=== PATIENT | male | born 1960 | race Caucasian/White ===

== ENCOUNTER → 2019-01-24 06:20 | Outpatient (CLI) | payer OTHER | END | disposition home or self-care (01) | LOC: D.RAD 06:20 | DX: M19.90 Unspecified osteoarthritis, unspecified site (principal) ==

== ENCOUNTER 2019-06-20 10:36 | Outpatient (CLI) | payer OTHER ==
[~2019-06-20] VITALS: Ht 177.8 cm; Wt 125.5 kg
--- NOTE | ~2019-06-20 | HEMODYNAMI ---
PATIENT:KADEN POWERS MEDICAL RECORD: [id number] : 56 LOCATION:[facility] ADMISSION DATE: 06/20/19 Generatedon:06/20/201915:05 Patient name: KADEN POWERS Patient #: [id number] : 1960 Date of study: 06/20/2019 Page: Of Hemodynamic Procedure Report Patient Data Patient Demographics Procedure consent was obtained First Name: KADEN Gender: Male Last Name: PRIYA : 1960 Middle Initial: RAY Age: 59 year(s) Patient #: [id number] Race: Unknown SSN: [id number] Additional ID: [id number] Contact details [address]: [address] [place] [address] State: [place] City: [place] Zip code: [address] Past Medical History Allergies Allergen Reaction Date Comments Reported Other allergy 06/20/2019 shell fish Admission Admission Data Admission Date: 06/20/2019 Admission Time: 10:36 Procedure Procedure Types Cath Procedure Diagnostic Procedure LHC LHC w/Coronaries Procedure Description Procedure Date Procedure Date: 06/20/2019 Procedure Start Time: 14:41 Procedure End Time: 15:00 Procedure Staff Name Function Liam Doyle MD Performing Physician Fausto Alberot RT Monitor Argelia Bermudez RN Nurse Allegra Ayers RT Scrub Procedure Data Cath Procedure Fluoroscopy Diagnostic fluoroscopy Total fluoroscopy Time: 6.9 time: 6.9 min min Diagnostic fluoroscopy Total fluoroscopy dose: dose: 1483 mGy 1483 mGy Contrast Material Contrast Material Type Amount (ml) Isovue 300 91 Entry Location Entry Primary Successful Side Size Upsize Upsize Entry Closure Montiel ccessful Closure Location (Fr) 1 (Fr) 2 (Fr) Remarks Device Remarks Radial Right 6 Fr Mechanical artery Short Compression Estimated blood loss: 10 ml Diagnostic catheters Device Type Used For End Catheter Placement DIAGNOSTIC Min 110cm Procedure 5Fr catheter ([id number]) DIAGNOSTIC [place] 110cm 5 Procedure Fr catheter ([id number]) DIAGNOSTIC AR1 MOD 5Fr Procedure catheter ([id number]) Procedure Complications No complications Procedure Medications Medication Administration Route Dosage Oxygen NC 2 l/min Heparin Flush Bag added to field 2 bags (1000units/500ml NS) Lidocaine 2% added to field 20 0.9% NaCl I.V. 100 ml/hr Versed I.V. 1 mg Fentanyl I.V. 50 mcg Fentanyl I.V. 25 mcg Versed I.V. 0.5 mg Hemodynamics Rest Heart Rate: 84 (bpm) Pressure Samples Time Site Value (mmHg) Purpose Heart Use Rate(bpm) 14:45 LV 163/17,25 Snapshot 96 14:45 AO 141/83(105) Pullback 91 14:45 LV 161/10,23 Pullback 91 14:49 AO 139/91(113) Snapshot 89 Gradients Valve Time Site 1 Site 2 Mean SEP/DFP Peak To Heart Use (mmHg) (sec/min) Peak Rate (mmHg) (bpm) Aortic 14:45 LV AO 11 23 20 91 161/10,23 141/83(105) Calculations Valve P-P Mean Valve Index Valve Source Name Gradient Area Flow (cm2) Aortic 20 11 20 11 Snapshots Pre Cath Intra NCS Post Cath Vital Signs Time Heart Resp SPO2 etCO2 NIBP (mmHg) Rhythm Pain Sedation Rate (ipm) (%) (mmHg) Status Level (bpm) 14:26:25 84 13 96 24.8 149/84(115) NSR 0 (11) 10(A) , No pain 14:30:45 79 20 94 28.6 149/84(126) NSR 0 (11) 10(A) , No pain 14:35:03 80 19 93 28.6 137/81(105) NSR 0 (11) 10(A) , No pain 14:39:21 90 15 92 30.8 144/81(122) NSR 0 (11) 10(A) , No pain 14:44:51 96 15 90 10.5 129/62(93) NSR 0 (11) 9(A) , No pain 14:49:07 87 15 90 12 137/77(83) NSR 0 (11) 9(A) , No pain 14:53:26 93 16 92 0 139/78(117) NSR 0 (11) 9(A) , No pain 14:57:44 93 12 92 24.8 130/76(99) NSR 0 (11) 9(A) , No pain Medications Time Medication Route Dose Verified Delivered Reason Notes Eff ectiveness by by 14:25:27 Oxygen NC 2 Liam Argelia for low 02 l/min Vivek Sparksor sats RN 14:25:35 Heparin Flush added 2 Argelia Argelia used for Bag to bags Lara Lara procedure (1000units/500ml field RN RN NS) 14:25:43 Lidocaine 2% added 20ml Argelia Argelia for local to vial Lara Lara anesthetic field RN RN 14:25:54 0.9% NaCl I.V. 100 Argelia Argelia used for ml/hr Lara Lara counseling program leader RN 14:41:15 Fentanyl I.V. 50 Liam Argelia for mcg Vivek Sparksor sedation RN 14:41:59 Versed I.V. 1 mg Liam Argelia for Vivek Bermudez sedation RN 14:46:33 Fentanyl I.V. 25 Liam Argelia for mcg Vivek Herrmannelor sedation RN 14:46:42 Versed I.V. 0.5 Liam Argelia for mg Vivek CRAWFORD Lara sedation abalone fisherman Log Time Note 14:00:42 Argelia Bermudez RN sent for patient. Start room use. 14:15:39 Procedure Status Elective Heart Cath (OP). 14:15:44 Time tracking: Regular hours (M-F 7:00 - 5:00) 14:15:49 Plan of Care:Hemodynamics will remain stable., Cardiac rhythm will remain stable., Comfort level will be maintained., Respiratory function will remain adequate., Patient/ family verbilizes understanding of procedure., Procedure tolerated without complication., Recovers from procedure without complications.. 14:15:54 Patient received from Pre/Post Procedure Room to [facility] 2 Alert and oriented. Tansferred to table in Supine position. 14:15:56 Signed procedure consent form obtained from patient. 14:15:58 Warm blankets applied, and neelam hugger turned on for patient comfort. 14:15:59 Correct patient and procedure confirmed by team. 14:16:18 H&P Date Dictated: 06/14/2019 Within 30 days and on chart., H&P Addendum completed by physician on day of procedure. (MUST COMPLETE FOR ALL OUTPATIENTS). 14:16:19 Pre-procedure instructions explained to patient. 14:16:21 Family in waiting room. 14:16:24 Patient NPO since Midnight. 14:16:37 Patient allergic to Other allergyshell fish 14:16:42 Was the patient premedicated? Yes 14:16:45 Is patient on blood thinner?No 14:16:51 Patient diabetic? Yes. 14:16:54 If diabetic: On Metformin? Yes 14:16:57 If on Metformin: Last Dose? 06/18/2019 14:17:03 Snore? Yes 14:17:05 Sleep apnea? Yes 14:17:15 Airway obstruction? Yes copd 14:17:21 Dentures? No ? 14:19:46 ECG and BP/O2 sat monitors applied to patient. 14:25:17 Vital chart was started 14:25:27 Oxygen 2 l/min NC was administered by Argelia Bermudez RN; for low 02 sats; Verbal order read back and verified. 14:25:35 Heparin Flush Bag (1000units/500ml NS) 2 bags added to field was administered by Argelia Bermudez RN; used for procedure; Verbal order read back and verified. 14:25:43 Lidocaine 2% 20ml vial added to field was administered by Argelia Bermudez RN; for local anesthetic; Verbal order read back and verified. 14:25:54 0.9% NaCl 100 ml/hr I.V. was administered by Argelia Bermudez RN; used for procedure; Verbal order read back and verified. 14:26:50 Baseline sample Acquired. 14:26:53 Rhythm: sinus rhythm 14:26:54 Full Disclosure recording started 14:26:58 Pre procedure: right dorsailis pedis pulse 1+ Palpable, but thready & weak; easily obliterated 14:27:00 Modified Louie's test Ulnar < 7 seconds 14:27:02 Patient pain scale 0/10 ?. 14:27:06 IV patent on arrival in left forearm with 0.9% NaCl at [facility]. 14:27:11 Lab results completed and on chart. 14:27:17 Right Radial & Right Groin area was prepped with chlora-prep and draped in sterile fashion 14::19 Alarms reviewed by R. N. 14:27:20 Sharps counted by scrub and verified by R.N. 14:31:48 Use device set Radial Dx or PCI 14:31:54 Tegaderm 4 x 4 (1626W) opened to sterile field. 14:31:58 ACIST Syringe (95841) opened to sterile field. 14:31:58 Medline Cath Pack ([id number]) opened to sterile field. 14:31:58 Bag Decanter (2002S) opened to sterile field. 14:31:59 ACIST Hand Control (35666) opened to sterile field. 14:31:59 ACIST Manifold (75457) opened to sterile field. 14:32:00 MBrace Wrist Support (860981109) opened to sterile field. 14:32:02 NEEDLE Cook 21G 4cm Radial (W45191) opened to sterile field. 14:32:04 EMERALD Guide Wire (502-773) opened to sterile field. 14:32:04 SHEATH 6FR RAIN (6266422) opened to sterile field. 14:35:11 2) 60-89 Mildly reduced kidney function, and other findings (as for stage 1) point to kidney disease. 14:36:03 --------ALL STOP TIME OUT------ 14:36:04 Final Timeout: patient, procedure, and site verified with staff and physician. All members of the team are in agreement. 14:36:06 Right Radial & Right Groin site verified by team. 14:36:09 Fire Safety Assessment: A--An alcohol-based skin anteseptic being used preoperatively., C--Open oxygen or nitrous oxide is being used., D--An ESU, laser, or fiber-optic light is being used. 14:36:12 Physical assessment completed. ASA score P 2 - A patient with mild systemic disease as per Liam Doyle MD. 14:36:18 Maximum allowable contrast dose (3.7 X eGFR X 0.75)224 ml. 14:36:21 Sedation plan: IV Moderate Sedation Medication:Versed, Fentanyl 14:41:15 Fentanyl 50 mcg I.V. was administered by Argelia Bermudez RN; for sedation; Verbal order read back and verified. 14:41:21 Procedure started. 14:41:31 Local anesthetic to right radial artery with Lidocaine 2% by Liam Doyle MD.INITIAL ACCESS ONLY 14:41:59 Versed 1 mg I.V. was administered by Argelia Bermudez RN; for sedation; Verbal order read back and verified. 14:43:10 A 6 Fr Short sheath was inserted into the Right Radial artery 14:43:39 A DIAGNOSTIC Min 110cm 5Fr catheter (542174) was advanced over the wire and used for Procedure. 14:45:34 LV angiography performed. 14:45:36 LV gram done using MABRY 14:45:41 EF : 50 % 14:45:59 LV hemodynamics recorded. 14:46:02 Injector settings: Ml/sec: 5, Volume: 15, 14:46:33 Fentanyl 25 mcg I.V. was administered by Argelia Bermudez RN; for sedation; Verbal order read back and verified. 14:46:42 Versed 0.5 mg I.V. was administered by Argelia Bermudez RN; for sedation; Verbal order read back and verified. 14:47:56 Catheter exchanged over wire. 14:48:01 A DIAGNOSTIC [place] 110cm 5 Fr catheter (961689) was advanced over the wire and used for Procedure. 14:50:08 LCA angiography performed. 14:53:06 RCA angiography performed. 14:55:49 Catheter exchanged over wire. 14:56:43 A DIAGNOSTIC AR1 MOD 5Fr catheter (662157N) was advanced over the wire and used for Procedure. 14:58:23 RCA angiography performed. 14:58:26 Catheter exchanged over wire. 14:58:29 ZEPHYR REGULAR TR BAND (001900) opened to sterile field. 14:58:42 Sheath removed intact; hemostasis achieved with Mechanical Compression to the Right Radial artery. 14:58:45 Procedure ended.(Physican Out) 14:59:03 Fluoroscopy time 06.90 minutes. 14:59:09 Flurop Dose total: 1483 14:59:09 Fluoroscopy dose: 1483 mGy 14:59:14 Dose Area Product 54098 mGy/cm. 14:59:30 Contrast amount:Isovue 300 91ml. 14:59:33 Maximum allowable dose exceeded? No. 14:59:35 Sharps counted by scrub and verified by R.N. 14:59:43 Insertion/operative site no bleeding no hematoma. 14:59:46 [place] band inflated with 10cc of air. 14:59:53 Post Procedure Pulses reassessed and unchanged 14:59:56 Post-procedure physical assessment completed. ASA score P 2 - A patient with mild systemic disease as per Liam Doyle MD. 14:59:58 Post procedure rhythm: unchanged. 15:00:02 Estimated blood loss: 10 ml 15:00:04 Post procedure instruction explained to patient.Patient verbalizes understanding. 15:00:04 Patient needs reinforcement of post procedure teaching. 15:00:15 Procedure and supply charges have been captured, reviewed, submitted and are correct. 15:00:18 Procedure Complication : No complications 15:00:22 Vital chart was stopped 15:00:26 [facility] Findings: MVD- CABG consult 15:00:28 Operative report dictated upon procedure completion. 15:00:29 See physician's report for complete and final results. 15:00:51 Report given to Pre/Post Procedure Room. 15:00:56 Patient transfered to Pre/Post Procedure Room with Stretcher. 15:00:58 Procedure ended. 15:00:58 Full Disclosure recording stopped Device Usage Item Name Manufacture Quantity Catalog Hospital Part Current Minima l Lot# / Number Charge Number Stock Stock Serial# Code Tegaderm 4 3M 1 1626W 401105 995082 316506 5 x 4 (1626W) ACIST Acist 1 85512 410282 825731 786182 20 Syringe Medical (40924) Systems Inc Medline Medline 1 [id number] 339841 30446 840066 5 Cath Pack ([id number]) Bag Microtek 1 2001S 716115 25396 826453 5 Decanter Medical Inc. () ACIST Hand Acist 1 70465 080620 758371 822233 5 Control Medical (61046) Systems Inc ACIST Acist 1 89654 910727 919597 597972 5 Manifold Medical (83487) Systems Inc MBrace Advanced 1 140-0250-00 236395 17178 287378 5 Wrist Vascular Support Dynamics (291398816) NEEDLE Cook Cook Medical 1 P23497 629639 768233 206072 5 21G 4cm Radial (W43056) EMERALD Cardinal 1 502-009 960802 399881 279470 5 Guide Wire [facility] (983-097) SHEATH 6FR Cardinal 1 4092356 098459 6478886 821031 5 [facility] (8124705) DIAGNOSTIC Terumo 1 40-3673 730543 061390 668071 5 Min 110cm 5Fr catheter (233125) DIAGNOSTIC Terumo 1 40-8207 928021 589300 954450 5 [place] 110cm 5 Fr catheter (986604) DIAGNOSTIC Cardinal 1 820352G 423282 342324 320687 15 AR1 MOD 5Fr Health catheter (394415Q) ZEPHYR Cardinal 1 926961 978729 5065345 089070 5 REGULAR TR Health BAND (608246) Signature Audit [place] Time Signature Unsigned Intra-Procedure 06/20/2019 Fausto Alberto 3:02:37 PM RT(R); Argelia Bermudez RN; Liam Doyle MD Signatures Performing Physician : Signature : Liam Doyle MD Date : Time : Monitor : Fausto Alberto RT Signature : Date : Time : Nurse : Argelia Signature : Lara THACKER Date : Time : [address] [place] [address]
[2019-06-20] MEDS ORDERED: FUROSEMIDE20 MG PO (10:53)
[2019-06-20] MEDS ORDERED: PREDNISONE20 MG PO (10:53)
[2019-06-20] MEDS ORDERED: ADVAIR 250/501 DISK INH (10:53)
[2019-06-20] MEDS ORDERED: LISINOPRIL40 MG PO (10:53)
[2019-06-20] MEDS ORDERED: METOPROLOL TART50 MG PO (10:53)
[2019-06-20] MEDS ORDERED: LIPITOR80 MG PO (10:54)
[2019-06-20] MEDS ORDERED: FISH OIL 1,0001 CA1 PO (10:54)
[2019-06-20] MEDS ORDERED: GLUCOPHAGE500 MG PO (10:55)
[2019-06-20] MEDS ORDERED: OMEPRAZOLE20 M1 PO (10:55)
[2019-06-20] MEDS ORDERED: DICLOFENAC SODI50 MG PO (10:55)
[2019-06-20] MEDS ORDERED: NORVASC10 MG PO (10:55)
[2019-06-20] MEDS ORDERED: VIAGRA100 MG PO (10:56)
[2019-06-20 11:01] VITALS: BP 131/75; Ht 177.8 cm; Wt 125.5 kg
[2019-06-20 11:37] LABS: BASOPHILS 0.1 % (0-2); EOSINOPHILS 0.1 % (0-7); HEMATOCRIT 41.7 % (42.0-54.0); HEMOGLOBIN 14.1 g/dL (13.5-17.5); IMMATURE GRANULOCYTES 0.3 % (0-5); LYMPHOCYTES 15.4 % (15-50); MCH 30.6 pg (26.0-34.0); MCHC 33.8 g/dL (31.0-37.0); MCV 90.5 fL (80.0-100.0); MEAN PLATELET VOLUME 10.8 fL (7.4-10.4); MONOCYTES 3.2 % (2-11); NEUTROPHILS 80.9 % (40-80); PLATELET COUNT 284 10x3/uL (130-400); RBC 4.61 10x6/uL (4.20-6.10); RDW 13.7 % (11.5-14.5); WBC 11.1 10x3/uL (4.8-10.8)
[2019-06-20 11:54] LABS: ALT (SGPT) 47 U/L (10-68); CALC OSMOLALITY 275 mosm/kg (275-300); CALCIUM 9.1 mg/dL (8.5-10.1); CARBON DIOXIDE 24.6 mmol/L (21.0-32.0); CHLORIDE - SERUM 102 mmol/L (98-107); CHOL - HDL RATIO 3.8 ratio (2.3-4.9); CHOLESTEROL, TOTAL 170 mg/dL (0-200); GLUCOSE 141 mg/dL (74-106); HDL CHOLESTEROL 45 mg/dL (32-96); LDL CHOLESTEROL 113 mg/dL (0-100); LDL-HDL RATIO 2.5 ratio (1.5-3.5); POTASSIUM - SERUM 4.3 mmol/L (3.5-5.1); SODIUM 137 mmol/L (136-145); TRIGLYCERIDE 63 mg/dL (30-200); UREA NITROGEN 12 mg/dL (7-18); eGFR NON AFRICAN AMERICAN 81 mL/min (90-120)
--- NOTE | 2019-06-20 15:22 | NUR ---
RECEIVED PT FROM SUPERVISOR PERSONNEL CLERKS, PT IS ALERT, DENIES ANY C/O PAIN OR NAUSEA. Z BAND IS CDI TO RIGHT WRIST WITH NO BLEEDING NOTED. FINGERS WARM AND CAP REFILL IS BRISK. NSR, RATE IS 85, BP IS 143/71. AT BEDSIDE, CALL LIGHT IN REACH.
--- NOTE | 2019-06-20 15:43 | NUR ---
DR SALMERON HAS ROUNDED ON PT AND SPOKEN WITH PT AND HIS . PT IS ALERT AND DENIES ANY C/O. Z BAND IS CDI TO RIGHT WRIST, NO BLEEDING NOTED. FINGERS WARM AND CAP REFILL IS BRISK. PT DENIES ANY NV DEFICIT TO HAND. PO FLUIDS AND SANDWICH SERVED. VSS.
--- NOTE | 2019-06-20 16:38 | NUR ---
1600 PT SITTING UP IN BED, EATING SANDWICH, IS ALERT AND DENIES ANY C/O. Z BAND IS CDI RIGHT WRIST WITH NO BLEEDING NOTED. FINGERS WARM AND CAP REFILL IS BRISK. VSS, CALL LIGHT IN REACH. 1630 3 CC OF AIR WEANED FROM Z BAND WITH NO BLEEDING NOTED.
--- NOTE | 2019-06-20 16:54 | NUR ---
1650 2 CC OF AIR WEANED FROM Z BAND WITH NO BLEEDING NOTED. FINGERS WARM AND PULSES PALPABLE. PT ALERT AND DENIES ANY C/O. DC INSTRUCITONS REVIEWED WITH PT AND HIS , WRITTEN COPIES PROVIDED.
--- NOTE | 2019-06-20 17:14 | NUR ---
1705 ALL REMAINING AIR WEANED FROM Z BAND WITH NO BLEEDING NOTED. FINGERS WARM AND CAP REFILL IS BRISK. PT DENIES ANY NV DEFICIT TO HAND. 1710 DR MOON'S NURSE HERE SPEAKING WITH PT.
--- NOTE | 2019-06-20 18:05 | NUR ---
1720 Z BAND REMOVED AND 2X2, TEGADERM PLACED TO SITE. WRIST IMMOBILIZER IN PLACE. PT IS ALERT AND DENIES ANY C/O. IV DC'D WITH CATH INTACT AND PT IS DRESSING FOR DC WITH ASSIST. PT HAS VOIDED 800 CC CLEAR YELLOW URINE TO URINAL. 1735 DRESSING REMAINS CDI TO RIGHT WRIST, NO BLEEDING OR HEMATOMA NOTED. PT ESCORTED TO PRIVATE AUTO VIA WC BY NURSE WITH DRIVING HIM HOME. PT HAS ALL PERSONAL BELONGINGS AND DC INSTRUCTIONS AT TIME OF DISCHARGE.
== END 2019-06-20 17:35 | disposition home or self-care (01) ==
LOC: D.CATH 10:36
PROVIDERS: ATTEND Internal Medicine Cardiovascular Disease
DX: I25.110 Atherosclerotic heart disease of native coronary artery with unstable angina pectoris (principal); R06.02 Shortness of breath; E11.9 Type 2 diabetes mellitus without complications

== ENCOUNTER 2019-06-22 09:41 | Inpatient (IN) | payer OTHER ==
[~2019-06-22] VITALS: Ht 177.8 cm; Wt 76.4 kg
[~2019-06-22 09:41] MED LIST: ADVAIR 250/501 DISK INH; DICLOFENAC SODI50 MG PO; FISH OIL 1,0001 CA1 PO; FUROSEMIDE20 MG PO; GLUCOPHAGE500 MG PO; LIPITOR80 MG PO; LISINOPRIL40 MG PO; METOPROLOL TART50 MG PO; NORVASC10 MG PO; OMEPRAZOLE20 M1 PO; PREDNISONE20 MG PO; VIAGRA100 MG PO
[2019-06-22] MEDS ORDERED: BAYER CHEWABLE81 MG PO (09:47)
[2019-06-22 11:37] LABS: BASOPHILS 0.5 % (0-2); EOSINOPHILS 1.1 % (0-7); HEMATOCRIT 42.7 % (42.0-54.0); HEMOGLOBIN 13.9 g/dL (13.5-17.5); IMMATURE GRANULOCYTES 0.3 % (0-5); LYMPHOCYTES 34.1 % (15-50); MCH 30.2 pg (26.0-34.0); MCHC 32.6 g/dL (31.0-37.0); MCV 92.6 fL (80.0-100.0); MONOCYTES 10.2 % (2-11); NEUTROPHILS 53.8 % (40-80); PLATELET COUNT 310 10x3/uL (130-400); RBC 4.61 10x6/uL (4.20-6.10); RDW 14.1 % (11.5-14.5); WBC 12.1 10x3/uL (4.8-10.8)
[2019-06-22 11:40] LABS: APPEARANCE CLEAR (CLEAR); BILIRUBIN NEGATIVE (NEGATIVE); COLOR YELLOW (YELLOW); GLUCOSE NEGATIVE (NEGATIVE); KETONE NEGATIVE (NEGATIVE); NITRITE NEGATIVE (NEGATIVE); PROTEIN NEGATIVE (NEGATIVE); UROBILINOGEN NORMAL (NORMAL)
[2019-06-22 11:44] LABS: APTT 26.9 SECONDS (22.8-39.4); INR 0.96 (0.85-1.17); PROTIME 12.3 SECONDS (11.6-15.0)
[2019-06-22 11:53] LABS: ALBUMIN 3.9 g/dL (3.4-5.0); ANION GAP 11.2 mmol/L (8-16); BILIRUBIN - TOTAL 0.49 mg/dL (0.2-1.3); CALCIUM 9.1 mg/dL (8.5-10.1); CARBON DIOXIDE 31.2 mmol/L (21.0-32.0); CREATININE - SERUM 1.1 mg/dL (0.6-1.3); PHOSPHOROUS 4.4 mg/dL (2.5-4.9); POTASSIUM - SERUM 4.4 mmol/L (3.5-5.1); PROTEIN - SERUM 7.3 g/dL (6.4-8.2); T4 THYROXIN - FREE 0.96 ng/dL (0.76-1.46); THYROID STIMULATING HORMONE 3.38 uIU/mL (0.36-3.74)
[2019-06-26] VITALS (45 sets, daily range): BP systolic 87–143; BP diastolic 48–607; BMI 39.5; BMI 39.6
[2019-06-26 13:01] LABS: INR 1.46 (0.85-1.17); PROTIME 17.2 SECONDS (11.6-15.0)
--- NOTE | 2019-06-26 15:31 | NUR ---
PT ARRIVED TO ROOM 1416 SEDATED FROM SURGERY,ETT 8.0 AT 14 PLACED ON VENT BY RT, R IJ CVL DRESSING CDI, SEE IV FLOWSHEET, R RADIAL A LINE ZEROED,W RIST PROTECTOR IN PLACE, GOOD WAVEFORM, MIDSTERNAL DRESSING CDI SUBSTERNAL TPM WIRES COILED, CLAUDE DRAIN COMPRESSED WITH BLOODY DRAINAGE, CTX2 20CM SUCTION NO AIR LEAK AND BLOODY DRAINAGE, CRITICORE DRAINING YELLOW URINE, BILAT LEG HARVESTS WITH LLE WITH DRESSING CDI RLE COBAN GROIN TO ANKLE, LLE CHERYLE AND SCDS IN PLACE FAMILY UPDATED BY DR MOON AND STEPHANIE QUESTIONS, 1530 DR MOON IN ROOM AND UPDATED ON PT, ORDERS GIVEN TO RT AND ORDERS FOR DIPROVAN
--- NOTE | 2019-06-26 16:07 | NUR ---
DR MOON IN ROOM ORDERS FOR HALF AN AMP OF CALCIUM AND TO INCREASE FLUIDS TO 250 FOR ONE HOUR, FLUID RATE CHANGED ON EXISTING BAG OF FLUIDS
--- NOTE | 2019-06-26 17:06 | NUR ---
CALLED [facility] TO DR MOON WHO WANTED THEM CALLED TO DR GUTIÉRREZ, CALLED AND HE STATED HE WOULD COME TO UNIT TO SEE PT
--- NOTE | 2019-06-26 17:22 | NUR ---
DR GUTIÉRREZ IN UNIT, VENT CHANGESMADE AND REPEAT ABG IN 1 HOUR, RT AND DR MOON AWARE
--- NOTE | 2019-06-26 18:37 | NUR ---
[facility] CALLED TO DR GUTIÉRREZ AND DR MOON, NO CHANGES PER DR GUTIÉRREZ, PER DR MOON HALF AMP CALCIUM GIVEN
--- NOTE | 2019-06-26 19:10 | NUR ---
SHIFT ASSESSMENT COMPLETE. CVP AND KHAI ZEROED. PATIENT AROUSES EASILY TO VERBAL STIMULI. NURSE AT BEDSIDE. ALL DRESSING CDI.
--- NOTE | 2019-06-26 19:31 | NUR ---
DECREASED NEOSYNEPHRINE TO 0.2MCG/KG/MIN DUE TO BP 126/57 (80).
--- NOTE | 2019-06-26 20:07 | NUR ---
DECREASED AMIODARONE GTT TO 0.5MG/MIN PER MD ORDER.
--- NOTE | 2019-06-26 21:56 | NUR ---
PATIENT C/O OF PAIN. MORPHINE GIVEN PER MD ORDER FOR PAIN. PATIENT FOLLOWS COMMANDS. NURSE AT BEDSIDE. CT AND CLAUDE DRAIN INTACT. R IJ/ R HAND IV INTACT AND PATENT.
--- NOTE | 2019-06-26 22:16 | NUR ---
DECREASED NEOSYNEPHRINE TO 0.1MCG/KG/MIN DUE TO BP INCREASEING TO 131/61 (84).
--- NOTE | 2019-06-26 23:05 | NUR ---
REASSESSMENT COMPLETE. NO CHANGES IN PATIENT CONDITION. NEOSYNEPHRINE DISCONTINUED AT THIS TIME. BP 138/63 (88).
[2019-06-27] VITALS (118 sets, daily range): BP systolic 112–160; BP diastolic 52–97; Ht 177.8 cm; Wt 76.4 kg
--- NOTE | 2019-06-27 01:00 | NUR ---
PATIENT SLEEPING WITH NO DISTRESS NOTED. PATIENT IN VIEW OF NURSE. IV INTACT AND PATENT.
--- NOTE | 2019-06-27 03:00 | NUR ---
REASSESSMENT COMPLETE WITH NO CHANGES NOTED.
--- NOTE | 2019-06-27 03:45 | NUR ---
SUBSTERNAL DRESSING CHANGED, PATIENT TOLERATED WELL. PRADO INTACT AND PATIENT.
--- NOTE | 2019-06-27 04:45 | NUR ---
PATIENT SLEEPING, AROUSES EASILY TO VERBAL STIMULI. PATIENT CHG BATH GIVEN, TOLERATED WELL.
--- NOTE | 2019-06-27 06:10 | NUR ---
BLOOD DRAWN FOR LAB. PATIENT SLEEPING WITH NO DISTRESS NOTED.
[2019-06-27 06:19] LABS: HEMATOCRIT 34.7 % (42.0-54.0); HEMOGLOBIN 11.1 g/dL (13.5-17.5); MCH 29.6 pg (26.0-34.0); MCV 92.5 fL (80.0-100.0); MEAN PLATELET VOLUME 10.8 fL (7.4-10.4); RBC 3.75 10x6/uL (4.20-6.10); RDW 14.3 % (11.5-14.5); WBC 17.2 10x3/uL (4.8-10.8)
[2019-06-27 06:39] LABS: ALBUMIN 2.4 g/dL (3.4-5.0); ALKALINE PHOSPHATASE 50 U/L (46-116); ALT (SGPT) 33 U/L (10-68); BILIRUBIN - TOTAL 0.52 mg/dL (0.2-1.3); CALC OSMOLALITY 281 mosm/kg (275-300); CALCIUM 7.2 mg/dL (8.5-10.1); CARBON DIOXIDE 26.8 mmol/L (21.0-32.0); CHLORIDE - SERUM 107 mmol/L (98-107); CREATININE - SERUM 0.9 mg/dL (0.6-1.3); GLUCOSE 168 mg/dL (74-106); POTASSIUM - SERUM 4.1 mmol/L (3.5-5.1); PROTEIN - SERUM 4.9 g/dL (6.4-8.2); SODIUM 140 mmol/L (136-145); UREA NITROGEN 11 mg/dL (7-18); eGFR NON AFRICAN AMERICAN > 90 mL/min (90-120)
--- NOTE | 2019-06-27 07:00 | NUR ---
PT RECIEVED ON VENT, SEDATED AND ABLE TO FOLLOW COMMANDS, SEE ASSESSMENT FOR VENT SETTINGS, R IJ CVL DRESSING CDI, SEE IV FLOWSHEET, MIDSTERNAL AND SUBSTERNAL DRESSINGS CDI WITH SUBSTERNAL TPM WIRES COILED, CLAUDE DRAIN COMPRESSED, CTX2 20CM SUCTION, NO AIR LEAK, BILAT LEG HARVEST WITH DRESSING TO LLE CDI AND COBAN RLE GROIN TO ANKLE, CRITICORE PRADO DRAINING YELLOW URINE, CHERYLE/SCD TO LLE, PT ABLE TO FOLLOW COMMANDS, HAND COIL FORMER EQUAL, DENIES ALL NEEDS
--- NOTE | 2019-06-27 07:48 | NUR ---
DR MOON IN ROOM, ORDERS TO DROP FIO2 TO 80%, CONTINUE AMIODARONE AND HOLD PO MEDS
--- NOTE | 2019-06-27 07:54 | OP ---
PATIENT NAME: KADEN POWERS MEDICAL RECORD: [id number] :56 LOCATION:[id number] ADMISSION DATE:06/26/19 SURGEON: RD MOON MD DATE OF OPERATION: 06/26/2019 SURGEON: Rd Moon MD CLOTH BOIL OFF MACHINE OPERATOR: Pieter Hardy. OPERATION PERFORMED: Coronary artery bypass graft times 3 (left internal mammary artery to LAD, reverse saphenous vein graft from aorta to obtuse marginal, aorta to posterior descending artery). PREOPERATIVE DIAGNOSES: Coronary artery disease with unstable angina. POSTOPERATIVE DIAGNOSES: Coronary artery disease with unstable angina. ANESTHESIA: General endotracheal anesthesia. ESTIMATED BLOOD LOSS: Total cardiopulmonary bypass with Cell Saver retransfusion. COMPLICATIONS: None. SPECIMENS: None. CONDITION: Stable. DISPOSITION: CV ICU. OPERATIVE FINDINGS: 1. Transesophageal echocardiography with good contractility and no significant valvular stenosis or regurgitation. 2. Deep right greater saphenous vein not amenable to endoscopic harvest; therefore, harvested opened the left greater saphenous vein, was exposed, but likewise deep and was not harvested. 3. Large fatty heart. 4. Good quality left internal mammary artery. The LAD was 2.0-mm vessel with severe disease. 5. The first diagonal was small with severe disease and not grafted. 6. Obtuse marginal 2.5 mm with severe disease. 7. Posterior descending artery 1.5 mm. The right coronary artery had severe disease to the bifurcation and in the ongoing right coronary artery. OPERATIVE INDICATION: Coronary artery disease with unstable angina including rest angina. DESCRIPTION OF PROCEDURE: The patient was brought to the operating suite. General anesthesia obtained. The patient was prepped and draped. Greater saphenous vein was harvested with bridging incisions in the right thigh and right lower leg. Side branches were divided with clips. The vessel was removed. Thin sites were oversewn and side branches were tied. Later, the leg was closed in 2 layers. Mediastinotomy incision was made. Subcutaneous tissue was divided by OPERATIVE REPORT [id number] KADEN POWERS electrocautery. Sternum was divided with a saw. Left hemisternum was elevated. The left pleural cavity was entered. Left internal mammary artery and vein was taken down as a pedicle graft. Sternal retractor was placed. Pericardium was opened. Heparin was given. Aorta was cannulated. Dual stage venous cannula was inserted. The internal mammary was clipped distally and made ready for anastomosis. Activated clotting time was appropriately elevated. The patient was placed on cardiopulmonary bypass. Sites for distal anastomoses were selected. Antegrade cardioplegia cannula was inserted. The patient was cooled to 34 degrees. Crossclamp was placed. Cardioplegia was given antegrade and this was repeated at 15-minute intervals including down the completed vein grafts. Distal anastomosis was performed in standard technique. Proximal anastomosis with single cross-clamp technique. Aortic root de-aired and flow restored. Vein graft de-aired. Single suture in the distal internal mammary and the proximal vein graft fully rewarmed, weaned from cardiopulmonary bypass and was stable. The patient was decannulated. Aortic cannulation site was oversewn with a pledgeted Prolene suture. Protamine was given. Thorough irrigation was undertaken. Grafts lay appropriately. Good Doppler signal of the internal mammary after reversal of the heparin. The drains were placed in the mediastinum and left pleural cavity. Atrial and ventricular pacing wires were placed. Pericardial fat was loosely reapproximated in the midline. Internal mammary harvest site was inspected for bleeding. The left chest was evacuated and irrigated. Sternum was closed with wires and sternal plates. Fascia was closed. Subcutaneous tissue was closed. Skin was closed. Dermabond was placed. The needle and sponge counts were reported as correct and the patient was taken to the ICU in stable condition. TRANSINT:[id number] Voice Confirmation ID: [id number] DOCUMENT ID: [id number] RD MOON MD at 0754 CC: NATALIE SALMERON M.D. [id number] DICTATION DATE: 06/26/19 1538 STOCKROOM WORKER: 06/26/19 1709 ADM IN [place] [id number] [place] [address]
--- NOTE | 2019-06-27 08:08 | NUR ---
DR MOON IN ROOM STATED IN 15 MINUNITES DROP FIO2 TO 70% THEN IN AN HOUR TO 60% THEN 30MINUTES AFTER GET ABG, RT NOTIFIED
--- NOTE | 2019-06-27 09:39 | NUR ---
SPO2 88%, RT NOTIFIED AND O2 INCREASED TO 80%
--- NOTE | 2019-06-27 09:41 | NUR ---
SPO2 89% RT NOTIFIED AND FIO2 INCREASED TO 80%
--- NOTE | 2019-06-27 11:19 | NUR ---
FIO2 DECREASED TO70
--- NOTE | 2019-06-27 13:34 | NUR ---
FAMILY HERE FOR VISITATION, SPOKE WITHDR GUTIÉRREZ VIA TELEPHONE, SPO2 DROPPING TO 86, RT CALLED AND IN ROOM TO ADJUST FIO2
--- NOTE | 2019-06-27 14:23 | NUR ---
DR MOON IN ROOM ORDERS FOR PEEP 10, RT NOTIFIIED AND ADJUSTED VENT
--- NOTE | 2019-06-27 14:52 | NUR ---
BLE DRESSINGS REMOVED, ADDED TEDS/SCDS TO RLE AND GAUZE BETWEEN INCISION SITES AND TEDS
--- NOTE | 2019-06-27 15:34 | NUR ---
DR MOON IN ROOM ORDERS FOR 2.5LOPRESSOR Q4H
--- NOTE | 2019-06-27 16:03 | NUR ---
PER DR MOON CURRENT VENT SETTINGS FIO2 70% PEEP 8
--- NOTE | 2019-06-27 19:12 | NUR ---
PT RECEIVED SEDATED ON VENT, NODS HEAD TO ANSWER QUESTIONS. RIGHT IJ PATENT RECEIVING PLASMALYTE, NITRO, AMIODARONE, AND DIPROVAN. VENT A/C RATE 14, TV 650, O2 65%, PEEP 8. SUCTIONING PROVIDED. VSS. CHEST TUBES X2 TO SUCTION, NO LEAK NOTED. CLAUDE DRAIN COMPRESSED, TPM WIRE COVERED WITH DRESSING. DRESSING C/D/I. NO S/S OF DISTRESS. WILL CONTINUE TO OBSERVE.
--- NOTE | 2019-06-27 21:31 | NUR ---
PT CONTINUES SEDATION ON VENT, ANSWERING QUESTIONS BY NODDING HEAD. VSS. TITRATING NITRO AND CLEVIPREX TOLERATED. NO S/S OF DISTRESS. NO CHANGES TO VENT SETTINGS. WILL CONTINUE TO OBSERVE.
--- NOTE | 2019-06-27 22:55 | NUR ---
PT BECOMES RESTLESS ACKNOWLEDGES PAIN, HR AND B/P INCREASED. PRN PAIN MEDICATION GIVEN PER MAR. WILL CONTINUE TO OBSERVE.
[2019-06-28] VITALS (76 sets, daily range): BP systolic 104–154; BP diastolic 50–69
--- NOTE | 2019-06-28 01:23 | NUR ---
PT RESTING WITH EYES CLOSED AND CHEST RISING. VSS. WILL CONTINUE TO OBSERVE.
--- NOTE | 2019-06-28 03:43 | NUR ---
IMAGING HAS TAKEN XRAY. PT TOLERATED WELL. WILL CONTINUE TO OBSERVE.
[2019-06-28 05:20] LABS: BASOPHILS 0.1 % (0-2); EOSINOPHILS 0.1 % (0-7); HEMATOCRIT 30.4 % (42.0-54.0); HEMOGLOBIN 9.7 g/dL (13.5-17.5); IMMATURE GRANULOCYTES 0.4 % (0-5); LYMPHOCYTES 13.1 % (15-50); MCH 29.4 pg (26.0-34.0); MCHC 31.9 g/dL (31.0-37.0); MCV 92.1 fL (80.0-100.0); MEAN PLATELET VOLUME 10.5 fL (7.4-10.4); MONOCYTES 13.1 % (2-11); NEUTROPHILS 73.2 % (40-80); PLATELET COUNT 185 10x3/uL (130-400); RDW 14.4 % (11.5-14.5); WBC 16.2 10x3/uL (4.8-10.8)
--- NOTE | 2019-06-28 05:40 | NUR ---
RECEIVED CHG BATH WITH COMPLETE LINEN CHANGED. SUBSTERNAL DRESSING CHANGED TPM WIRES X2. PT TOLERATED WELL. WILL CONTINUE TO OBSERVE.
[2019-06-28 06:04] LABS: ALBUMIN 2.2 g/dL (3.4-5.0); ALKALINE PHOSPHATASE 53 U/L (46-116); ALT (SGPT) 32 U/L (10-68); BILIRUBIN - TOTAL 0.54 mg/dL (0.2-1.3); CALC OSMOLALITY 279 mosm/kg (275-300); CALCIUM 7.1 mg/dL (8.5-10.1); CHLORIDE - SERUM 105 mmol/L (98-107); CREATININE - SERUM 0.9 mg/dL (0.6-1.3); GLUCOSE 148 mg/dL (74-106); PHOSPHOROUS 2.7 mg/dL (2.5-4.9); POTASSIUM - SERUM 3.9 mmol/L (3.5-5.1); PROTEIN - SERUM 5.2 g/dL (6.4-8.2); SODIUM 139 mmol/L (136-145); UREA NITROGEN 10 mg/dL (7-18); eGFR NON AFRICAN AMERICAN > 90 mL/min (90-120)
--- NOTE | 2019-06-28 09:32 | NUR ---
DR MOON BY TO SEE PATIENT. SPOKE WITH FAMILY. ASKED PT CLEVIPREX TO BE WEANED. ONE TIME DOSE METOPROLOL 2.5 NOW AND THEN 5MG/Q4H SCHEDULED.
--- NOTE | 2019-06-28 09:45 | TEE ---
PATIENT:KADEN POWERS MEDICAL RECORD: [id number] LOCATION:[place] [address] AGE OF PATIENT: 59 ADMISSION DATE: 06/26/19 SEX: M REFERRING PHYSICIAN: INTERPRETING PHYSICIAN: MOISES LEE MD TRANSESOPHAGEAL ECHOCARDIOGRAM Date: 06/26/19 DESI CHARGE Y INDICATIONS: CABG PREMEDICATIONS: PATIENT'S RESPONSE PROCEDURE DOPPLER MEASUREMENTS: LVIT LA 4.3 PA RA LVOT RVOT Asc. Ao AV Gradient Peak AV Mean AV Area MV Gradient Peak MV Mean MV Area INTERPRETATION: Doppler: 2-D: COLOR FLOW DOPPLER NORMAL SALINE STUDY: MISCELLANOUS: DIAGNOSIS: PLAN: Bacteriology Teacher:Juanita Doyle Artificial Foliage Arranger: Klaudia FRYE COMMENTS: DATE OF SERVICE: 06/27/2019 PROCEDURE: Transesophageal echo evaluation of valvular structures during bypass surgery. FINDINGS: 1. Left ventricular chamber size is within normal limits. Left ventricular systolic function is normal. Overall ejection fraction estimated at 55%. 2. Left atrium, right atrium, and right ventricular chamber sizes are within TRANSESOPHAGEAL ECHOCARDIOGRAM REPORT [id number] KADEN POWERS normal limits. 3. Valvular structures have normal structure and motion. 4. Doppler interrogation reveals no significant valvular insufficiency or stenosis. 5. No evidence of pericardial effusion or left ventricular thrombus. TRANSINT:[id number] Voice Confirmation ID: [id number] DOCUMENT ID: [id number] at 0945 CC: [id number] DICTATION DATE: 06/27/19 0909 INCLUSION MANAGER: 06/27/19 2355 ADM IN [place] [address] [place] [address]
--- NOTE | 2019-06-28 09:48 | NUR ---
DR GUTIÉRREZ CALLED TO CHECK ON PATIENT. REVIEWED VENT SETTINGS. A/C 14, TV 650, 80% WITH PEEP 8. HE THEN ASKED WHY PEEP WAS CHANGED FROM 12 TO 8. I DID NOT KNOW THE ANSWER, BUT THE RESPIRATORY THERAPIST SAID THAT IT WAS CHANGED BY DR MOON SOMETIME YESTERDAY. HE THEN ASKED THAT THE PEEP BE CHANGED BACK TO 12.
--- NOTE | 2019-06-28 09:50 | NUR ---
PLACE PT PEEP BACK TO 12 PER
--- NOTE | 2019-06-28 11:20 | NUR ---
CENTRAL LINE DRESSING CHANGED PER PROTOCOL
--- NOTE | 2019-06-28 11:35 | NUR ---
DR GUTIÉRREZ BY TO EXAMINE PATIENT. PLAN FOR POSSIBLE BRONCH LATER TODAY
--- NOTE | 2019-06-28 12:21 | NUR ---
CALLED TO GET CONSENT TO DO BRONCHOSCOPY. INITIALLY SPOKE WITH CHRISTEN, SHE ASKED IF I WOULD TALK TO SON MISSY BECAUSE SHE WAS SCARED. EXPLAINED TO SON WILL PLACE SCOPE DOWN INTO AIRWAY TO LOOK FOR MUCUS PLUGS AND WASH OUT IF NEEDED. DID NOT OBTAIN TELEPHONE CONSENT AT THIS TIME, SON SAID THEY WILL BE COMING TO HOSPITAL AND WILL BE HERE IN ABOUT 30 MINUTES.
--- NOTE | 2019-06-28 12:33 | NUR ---
OGT PLACE PER REQUEST OF AUBREY GUTIÉRREZ AND SARAI. AUDIBLE GURGLE AT PLACEMENT CHECK.
--- NOTE | 2019-06-28 13:04 | NUR ---
FAMILY ARRIVED. SPOKE WITH DR GUTIÉRREZ. CONSENT OBTAINED. BRONCHOSCOPY PERFORMED.
--- NOTE | 2019-06-28 16:36 | NUR ---
AT BEDSIDE AT THIS TIME.
--- NOTE | 2019-06-28 17:07 | NUR ---
TUBE FEEDINGS SET UP THROUGH PUMP. PULMOCARE STARTED AT 20ML/HR. OGT WAS VERIFIED BY AUSCULTATION AGAIN PRIOR TO STARTING FEEDINGS. EXPLAINED TO FAMILY THIS IS A WAY OF GETTING NUTRITION TO PATIENT WHILE HE IS ON THE VENT AND UNABLE TO EAT.
--- NOTE | 2019-06-28 17:56 | NUR ---
LEAVING FOR THE EVENING. CALL IF NEEDED. SAYS [facility] AND HAS HAD PULMONARY FUNCTION TEST IN PAST AND HAVE ENQUIRED ABOUT HOME OXYGEN, BUT PT NEVER QUALIFIED. SHE ALSO MENTIONED THAT SHE CHECKS HIS OXIMETERY EVERY NIGHT AND THAT HE USUALLY READS 78-79%.
--- NOTE | 2019-06-28 18:18 | MORECARE ---
CASE MANAGEMENT DISCHARGE SUMMARY PATIENT: KADEN POWERS UNIT: [id number] ADM DATE: 06/26/19 AGE: 59 : 56 SEX: M ROOM/BED: [facility] AUTHOR: MYLA HERNANDEZ PHYSICIAN: REFERRING PHYSICIAN: NEREYDA MOON MD DATE OF SERVICE: 06/28/19 Discharge Plan Patient Name: KADEN POWERS Facility: [facility]:[place] : 1960 Planned Disposition: Home Anticipated Discharge Date: Discharge Date: Expected LOS: Initial Reviewer: [email or web address] Initial Review Date: 06/28/2019 Generated: 06/28/19 7:17 pm Patient Name: KADEN POWERS Page 18587 at 1818 All edits/amendments must be made on the electronic document DICTATION DATE: 06/28/191816 SENIOR CLINICAL SAS PROGRAMMER: IRMA 06/28/191816 RPT#: [id number] DC DATE: STATUS: ADM IN [facility] [address] [place] [address] END OF REPORT
--- NOTE | 2019-06-28 18:26 | MORECARE ---
CASE MANAGEMENT DISCHARGE SUMMARY PATIENT: KADEN POWERS UNIT: [id number] ADM DATE: 06/26/19 AGE: 59 : 56 SEX: M ROOM/BED: [facility] AUTHOR: MYLA HERNANDEZ PHYSICIAN: REFERRING PHYSICIAN: NEREYDA MOON MD DATE OF SERVICE: 06/28/19 Discharge Plan Patient Name: KADEN POWERS [facility] : 1960 Planned Disposition: Home Anticipated Discharge Date: Discharge Date: Expected LOS: Initial Reviewer: [email or web address] Initial Review Date: 06/28/2019 Generated: 06/28/19 7:26 pm DCPIA - Discharge Planning Initial Assessment Updated by [email or web address]: Soniya Lynn on 06/28/19 6:18 pm * How many steps to enter\exit or inside your home? * PCP Amanda * Pharmacy [facility] * Preadmission Environment Home with Family * ADLs Independent * Equipment Cane * List name and contact numbers for known caregivers / representatives who currently or will assist patient after discharge: CHRISTEN POWERS - - [phone] * Verbal permission to speak to the caregivers and representatives has been obtained from the patient. N/A * Community resources currently utilized None * Additional services required to return to the preadmission environment? No * Can the patient safely return to the preadmission environment? Yes * Has this patient been hospitalized within the prior 30 days at any hospital? No Last DP export: 06/28/19 5:18 Patient Name: KADEN POWERS Page [phone] at 1826 All edits/amendments must be made on the electronic document DICTATION DATE: 06/28/191825 REPLENISHMENT BUYER: IRMA 06/28/191825 RPT#: [id number] DC DATE: STATUS: ADM IN [facility] [address] [place] [address] END OF REPORT
--- NOTE | 2019-06-28 18:46 | MORECARE ---
CASE MANAGEMENT DISCHARGE SUMMARY PATIENT: KADEN POWERS UNIT: [id number] ADM DATE: 06/26/19 AGE: 59 : 56 SEX: M ROOM/BED: D.06 AUTHOR: DAVID,DOC PHYSICIAN: REFERRING PHYSICIAN: NEREYDA MOON MD DATE OF SERVICE: 06/28/19 Discharge Plan Patient Name: KADEN POWERS Facility: [facility]:[place] : 1960 Planned Disposition: Home Anticipated Discharge Date: Discharge Date: Expected LOS: Initial Reviewer: [email or web address] Initial Review Date: 06/28/2019 Generated: 06/28/19 7:46 pm Comments DCP- Discharge Planning Updated by [email or web address]: Soniya Lynn on 06/28/19 5:[address] Patient Name: KADEN POWERS Admission Status: Urgent Accout number: [id number] Admission Date: 06-26-2019 : 1960 Admission Diagnosis: Attending: NEREYDA MOON Current LOS: 2 Anticipated DC Date: Planned Disposition: Home Primary Insurance: [employer] Discharge Planning Comments: CM met with patient's (Patient is currently on vent/ sedated) at bedside after explaining CM role and obtaining verbal consent. Patient lives at home with his Tamiko where he is independent with his care and plans to return there upon discharge. Patient's feels this would be a safe discharge. CM discussed availability / needs of home health and medical equipment. Tamiko states that she wishes patient to have home 02 upon discharge. CM explained the requirements for home 02 and stated patient will be evaluated before discharge. Tamiko states that at home patient's pulse ox would run 79 -85% Patient denies any discharge needs at this time. Tamiko states he will have his family drive him home upon discharge. CM will continue to follow and assist as needed with discharge planning / needs. Summer Sessions Director: Soniya Lynn DCPIA - Discharge Planning Initial Assessment Updated by [email or web address]: Soniya Lynn on 06/28/19 6:18 pm * How many steps to enter\exit or inside your home? * PCP Amanda * Pharmacy [facility] * Preadmission Environment Home with Family * ADLs Independent * Equipment Cane * List name and contact numbers for known caregivers / representatives who currently or will assist patient after discharge: TAMIKO POWERS - - [phone] * Verbal permission to speak to the caregivers and representatives has been obtained from the patient. N/A * Community resources currently utilized None * Additional services required to return to the preadmission environment? No * Can the patient safely return to the preadmission environment? Yes * Has this patient been hospitalized within the prior 30 days at any hospital? No Last DP export: 06/28/19 5:26 Patient Name: KADEN POWERS Page [phone] at 1846 All edits/amendments must be made on the electronic document DICTATION DATE: 06/28/191845 BAND AND CUFF CUTTER: IRMA 06/28/191845 RPT#: [id number] DC DATE: STATUS: ADM IN [facility] [address] [place] [address] END OF REPORT
--- NOTE | 2019-06-28 19:00 | NUR ---
REPORT RECEIVED AT BEDSIDE, SHIFT ASSESSMENT COMPLETE, PT SEDATED ON VEDNT, ABLE TO MOVE HEAD FOR YES/NO QUESTIONS, PT VSS, DRSG'S C/D/I, SCD AND CHERYLE MOREJON, NSR ON CM, VSS, WILL CONTINUE TO MONITOR
--- NOTE | 2019-06-28 22:12 | NUR ---
INCREASED FIO2 80 % SPO2 91% CURRENT AND HOLDING BILATERAL EXP CRACKLES TO ANTERIOR AUSCULTATION
--- NOTE | 2019-06-28 23:00 | NUR ---
REASSESSMENT COMPLETE SEE FLOW SHEET, NO ACUTE CHANGES NOTED, VSS, REPOSITIONED FOR COMFORT, ORAL SUCTION AND CLEANING COMPLETE, BILAT WRIST RESTRAINTS REPOSITIONED, NSR ON CM, WILL CONTINUE TO MONITOR
[2019-06-29] VITALS (24 sets, daily range): BP systolic 113–138; BP diastolic 47–67
--- NOTE | 2019-06-29 00:37 | NUR ---
DECREASED FI02 T0 75% IN ATTEMPT TO TITRATE SPO2 VALUES BELOW 92% CURRENTLY 91% AND HOLDING
--- NOTE | 2019-06-29 02:27 | NUR ---
DECREASED FIO2 BACK TO 70% CURRENT SPO2 HOLDING STEADY VALUE OF 92%
--- NOTE | 2019-06-29 03:00 | NUR ---
REASSESSMENT COMPLETE SEE FLOW SHEET, REPOSITIONED PT IN BED, ORAL AND ETT CARE AND SUCTIONING COMPLETE, NO ACUTE S/S OF DISTRESS NOTED, VSS, WILL CONTINUE TO MONITOR
--- NOTE | 2019-06-29 04:35 | NUR ---
INCREASED FIO2 TO 80% PER ABG
--- NOTE | 2019-06-29 05:30 | NUR ---
CHG BATH AND COMPLETE LINEN CHANGE COMPLETE, GOWN REPLACED, SUBSTERNAL DRSG CHANGED PER ORDERS, PT TOLLERATED WELL WITH NO S/S OF DISTRESS, VSS, NSR ON CM, WILL CONTINUE TO MONITOR
[2019-06-29 06:15] LABS: HEMOGLOBIN 9.2 g/dL (13.5-17.5); MCH 29.6 pg (26.0-34.0); MCHC 31.7 g/dL (31.0-37.0); MCV 93.2 fL (80.0-100.0); MEAN PLATELET VOLUME 10.7 fL (7.4-10.4); RBC 3.11 10x6/uL (4.20-6.10); RDW 14.5 % (11.5-14.5); WBC 14.9 10x3/uL (4.8-10.8)
[2019-06-29 06:31] LABS: ALKALINE PHOSPHATASE 67 U/L (46-116); ALT (SGPT) 34 U/L (10-68); CALC OSMOLALITY 285 mosm/kg (275-300); CALCIUM 7.4 mg/dL (8.5-10.1); CARBON DIOXIDE 30.5 mmol/L (21.0-32.0); CHLORIDE - SERUM 105 mmol/L (98-107); CREATININE - SERUM 0.9 mg/dL (0.6-1.3); GLUCOSE 128 mg/dL (74-106); POTASSIUM - SERUM 3.7 mmol/L (3.5-5.1); PROTEIN - SERUM 5.6 g/dL (6.4-8.2); SODIUM 142 mmol/L (136-145); eGFR NON AFRICAN AMERICAN > 90 mL/min (90-120)
[2019-06-29 06:32] LABS: UREA NITROGEN 14 mg/dL (7-18)
--- NOTE | 2019-06-29 09:44 | NUR ---
AT BEDSIDE. UPDATE PROVIDED. ASKED WHEN WE WOULD "TAKE OUT THE TUBE" LET HER KNOW WAITING ON PHYSICIANS TO ROUND TO MAKE A DETERMINIATION
--- NOTE | 2019-06-29 11:25 | NUR ---
DR GUTIÉRREZ BY TO SEE PATIENT. ASKS TO START WAKING PATIENT TO TRY CPAP TRIALS. HAS DROPPED PEEP DOWN TO 10.
--- NOTE | 2019-06-29 12:25 | NUR ---
Nutrition Follow-up: Pt remains intubated. Noted OGT inserted yesterday and Pulmocare initiated. Receiving Pulmocare @ 30 mL/hr at time of visit this AM; tolerating per RN. Noted Diprivan at 30.1 mL/hr. Diet: Pulmocare @ goal rate of 45 mL/hr Wt: 281# No BMs recorded Labs noted: Glu 128, Ca 7.4, Alb 2.0, K+ 3.7 Meds noted: Lasix, KCl, Diprivan -Continue TF as tolerated with fluids per MD. -RD following.
--- NOTE | 2019-06-29 14:10 | NUR ---
PT ON SPONT CPAP TRIALS. VSS. SPO2 REMAINS ABOVE 92. NO DISTRESS. FOLLOWS COMMANDS. RESPONDS APPROPRIATELY.
--- NOTE | 2019-06-29 16:03 | NUR ---
DR MOON NURSES AT BEDSIDE TO REMOVE CHEST TUBES.
--- NOTE | 2019-06-29 16:31 | NUR ---
FAMILY AT BEDSIDE AT THIS TIME. LET THEM KNOW CHEST TUBES HAVE BEEN REMOVED AND PT TOLERATED WELL CPAP TRIALS. NOW BACK ON SEDATION
--- NOTE | 2019-06-29 16:47 | NUR ---
PT MORPHINE FELL OFF EMAR. SPOKE WITH DR SARAI HELMS NURSE. OK TO REORDER.
[2019-06-29 17:08] LABS: ACID FAST SMEAR Negative (()); AFB SPECIMEN PROCESSING Concentration (())
--- NOTE | 2019-06-29 18:25 | NUR ---
CENTRAL LINE DRESSING CHANGE TO RIGHT JUGULAR PER PROTOCOL
--- NOTE | 2019-06-29 18:39 | NUR ---
CPAP STARTED RR 21 UNLABORED SPO2 CURRENTLY 90% ET TUBE 24 LIP EQUALATERAL DIM BS NOTED TO ANTERIOR GARCÍA AUSCULTATION ZERO CYANOSIS NO S/S RESP DISTRESS
--- NOTE | 2019-06-29 19:00 | NUR ---
Received patient resting in bed with eyes closed, assessment completed per flowsheet. Patient opens eyes/follows instructions, returns to resting easily. ETT 8.0 @ 23cm secured, OGT with Pulmocare @ 40 ml/hr. S1/S2 noted NSR on telemetry, rythmic and regular. Vent settings CPAP V-600 P-10 PS-10 with O2 sat 91%, lung sounds clear bilateral upper and mid with diminished lower. Midline sternum/Substernal incision dressing CDI, Alcides x1 substernal with small serous drainage. Abdomen is round/soft with bowel sounds hypoactive x4, non-tender. Criticore secured, slight cloudy yellow urine noted. Generalized edema noted all with all pulses palpable, R radial a-line with good waveform. Oral care/suctioning provided, repositioned for comfort. Denies pain or other needs at this time, see flowsheet for details. All VSS and will continue to monitor.
--- NOTE | 2019-06-29 20:54 | NUR ---
RETURNED TO AC TOLERATED WELL
--- NOTE | 2019-06-29 21:00 | NUR ---
Patient resting in bed on vent with eyes closed, HS meds given as ordered. Oral care/suctioning provided, repositioned for comfort. No further needs at this time, all VSS and will continue to monitor.
--- NOTE | 2019-06-29 22:50 | NUR ---
Reassessment completed per flowsheet. S1/S2 noted NSR on telemetry, rythmic and regular. Vent settings A/C R-12 V-600 45% P-10 with O2 sat 92%, lung sounds clear bilateral upper and mid with diminished lower. Midline sternum/substernal incision dressing CDI, Alcides x1 with small serous drainage. All pulses palpable with cap refill < 3 sec, skin warm/dry. Oral care/suctioning provided, repositioned for comfort. See flowsheet for details, all VSS and will continue to monitor.
[2019-06-30] VITALS (33 sets, daily range): BP systolic 117–158; BP diastolic 50–78
--- NOTE | 2019-06-30 01:00 | NUR ---
Patient sleeping in bed with eyes closed on vent, no s/s of distress at this time. Oral care/suctioning provided, repositioned for comfort. No further needs and will continue to monitor.
--- NOTE | 2019-06-30 02:50 | NUR ---
Reassessment completed per flowsheet, no changes noted from previous assessment. S1/S2 noted NSR on telemetry, rythmic and regular. Vent settings unchanged from previous with O2 sat 92%, lung sounds clear bilateral upper and mid with diminshed lower. Midsternal/Substernal incision dressing CDI, Alcides x1 substernal with small serous drainage. R radial A-line with good waveform, remaining pulses palpable with cap refill< 3 sec. Oral care/suctioning provided, repositioned for comfort. See flowsheet for details, all VSS and will continue to monitor.
--- NOTE | 2019-06-30 05:00 | NUR ---
Patient resting in bed with eyes closed, no s/s of distress at this time. Oral care/suctioning provided, repostioned for comfort. No further needs at this time, all VSS and will continue to monitor.
[2019-06-30 05:43] LABS: HEMATOCRIT 29.5 % (42.0-54.0); HEMOGLOBIN 9.3 g/dL (13.5-17.5); MCH 29.7 pg (26.0-34.0); MCHC 31.5 g/dL (31.0-37.0); MCV 94.2 fL (80.0-100.0); MEAN PLATELET VOLUME 10.3 fL (7.4-10.4); RBC 3.13 10x6/uL (4.20-6.10); RDW 14.4 % (11.5-14.5); WBC 13.9 10x3/uL (4.8-10.8)
[2019-06-30 06:09] LABS: ALBUMIN 1.9 g/dL (3.4-5.0); ALKALINE PHOSPHATASE 102 U/L (46-116); BILIRUBIN - TOTAL 0.43 mg/dL (0.2-1.3); CALC OSMOLALITY 286 mosm/kg (275-300); CALCIUM 7.4 mg/dL (8.5-10.1); CARBON DIOXIDE 29.3 mmol/L (21.0-32.0); CHLORIDE - SERUM 106 mmol/L (98-107); CREATININE - SERUM 0.8 mg/dL (0.6-1.3); GLUCOSE 139 mg/dL (74-106); POTASSIUM - SERUM 3.7 mmol/L (3.5-5.1); PROTEIN - SERUM 5.7 g/dL (6.4-8.2); SODIUM 142 mmol/L (136-145); UREA NITROGEN 17 mg/dL (7-18); eGFR NON AFRICAN AMERICAN > 90 mL/min (90-120)
[2019-06-30 06:10] LABS: ALT (SGPT) 73 U/L (10-68)
--- NOTE | 2019-06-30 09:12 | NUR ---
0715-RECIEVED PER FLOW SHEET-RT AT BEDSIDE PROCESS OF CPAP TRIAL-DIPRIVAN REPORTED OFF AT 0630-RR 22-X1GCV-65-HR 98--RETURNED TO A/C-COPIOUS SUCTION VIA ET KZZZ-PULD-QOE TYPE--DIPRIVAN RESTARTED AT 5MCG-RR DECREASED TO 24-SAT TREND UP TO 90%--NOTED L LATERAL RHONCHI-NOTED OGT NOT IN CORRECT PLACE -TUBE FEEDING TURNED OFF -OGT REMOVED ESTIMATED AT BACK OF ORAL [id number]-FSKIRKCL 2MG IVP GIVEN FOR PT NOD YES IF NEEDED PAIN MEDICINE-DIPRIVAN TURNED OFF-RT AT BEDSDIE-PLACED PT TO CPAP WITHOUT PREVIOUS RESPONSE-PT NODDED YES WHEN ASKED IF BREATHING EASIER--TV 1250ML-RR 18-SAT 94 0745-ROTATED BED 30 DEGREES TO L SIDE-REASONING EXPLAINED TO PT -TOLERATED WELL-REFERRED TO TREATMENT PULMONARY TOILET 0845-RETURNED TO [place]PINE-TELEVISION PLACED TO SPORT CHANNEL WRITTEN REQUEST-RR 12-O2 SAT 93-HR 78-PT NODDED YES WHEN ASKED IF BREATHING EASY
--- NOTE | 2019-06-30 10:35 | NUR ---
DR MOON AT BEDSIDE-SPOKE WITH AND SON REGARDING EXPECTATIONS AND PLN OF CARE
[2019-06-30 15:09] LABS: FUNGUS STAIN Final report (())
--- NOTE | 2019-06-30 17:19 | NUR ---
1220-DR GUTIÉRREZ AT BEDSIDE AND ADDRESSED FAMILY QUESTIONS AND CONCERNS-DISCUSSED PLAN OF CARE WITH FAMILY AND EXPECTATIONS-VENT CHANGES BY DR GUTIÉRREZ 1400-ABG DRAWN-L RADIAL KHAI NOT PATENT-LINE DISCONTINUED-R HAND IV D/C'D WITH TIP INTACT 1420-ABG RESULTS CALLED TO DR GUTIÉRREZ -RECIEVED VERBAL EXTUBATION ORDER-T MULUGETA RT AT BEDSIDE-EXTUBATED AND TOLERATED WELL-PLACED TO VAPOTHERM AND TITRATED BY T MULUGETA RT FOR O2 SAT 90%-30L AND 75%-ENCOURAGED DB AND COUGH TO CLEAR AIRWAY-PT EASILY COMPLIED- 1600-PERCOCET 5MG PO GIVEN FOR BACK INCISION PAIN 1700-DANGLED PT AT SIDE OF BED-TOLERATED WELL-STOOD PT AT SIDE OF BED FOR COUNT OF 60-TOLERATED WELL-FAMILY AT BEDSIDE AND ASSISTING WITH CLEAR LIQUIDS
--- NOTE | 2019-06-30 19:15 | NUR ---
Received patient resting in bed with eyes open, assessment completed per flowsheet. Patient AO x4, answers appropriately/follows instructions. S1/S2 noted NSR on telemetry, rythmic and regular. Breathing is shallow on Vapotherm 40L/70% with O2 sat 91%, rythmic and regular, lung sounds clear bilateral upper and mid with diminished lower. Midline sternum/Substernal incision dressing CDI, Alcides drain x1 substernal with small serous drainage. Abdomen is round/soft with bowel sounds active x4, non-tender. Raines secured, clear yellow urine noted. All pulses bounding with cap refill < 3 sec, skin warm/dry. C/O chronic hip/back ache /, denies needs at this time. See flowsheet for details, all VSS and will continue to monitor.
--- NOTE | 2019-06-30 20:00 | NUR ---
ORAL CARE DONE WITH PERIDEX
--- NOTE | 2019-06-30 21:00 | NUR ---
HS meds given without difficulty, patient resting in bed with eyes open. Assisted to bedside commode at request, large soft formed stool noted. Denies needs at this time, all VSS and will continue to monitor.
--- NOTE | 2019-06-30 23:00 | NUR ---
Reassessment completed per flowsheet, no changes note from previous assessment. S1/S2 noted NSR on telemetry, rythmic and regular. Breathing is shallow on Vapotherm 40L @ 80% with O2 sat 93%, lung sounds clear bilateral upper and mid with diminished lower. Midline sternum/Substernal incision dressing CDI, Alcides x1 substernal with small serous drainage. Bilateral leg harvest sites open to air, well approximated. Repositioned for comfort, see flowsheet for details. All VSS and will continue to monitor.
[2019-07-01] VITALS (24 sets, daily range): BP systolic 106–150; BP diastolic 53–94
--- NOTE | 2019-07-01 01:00 | NUR ---
Patient resting in bed with eyes closed on BiPAP 50%, no s/s of distress at this time. Repositioned for comfort, no further needs at this time and will continue to monitor.
--- NOTE | 2019-07-01 02:55 | NUR ---
Reassessment completed per flowsheet, no changes noted from previous assessment. S1/S2 noted NSR on telemetry, rythmic and regular. Breathing is shallow on BiPAP 50% with O2 sat 94%, lung sounds clear bilateral upper and mid with diminished lower. Midline Sternum/Substernal incision dressing CDI, Alcides x1 substernal with small bloody drainage. All pulses palpable with cap refill < 3 sec, skin warm/dry. C/O chronic hip/back pain 2/10, repositioned with slight stated relief. Repositioned for comfort, no further needs at this time. See flowsheet for details, all VSS and will continue to monitor.
--- NOTE | 2019-07-01 05:00 | NUR ---
Patient resting in bed on BiPAP 50%, no s/s of distress at this time. Repositoned for comfort, denies further needs at this time and will continue to monitor.
[2019-07-01 06:21] LABS: HEMATOCRIT 29.8 % (42.0-54.0); HEMOGLOBIN 9.3 g/dL (13.5-17.5); MCH 29.6 pg (26.0-34.0); MCHC 31.2 g/dL (31.0-37.0); MCV 94.9 fL (80.0-100.0); RBC 3.14 10x6/uL (4.20-6.10); RDW 14.3 % (11.5-14.5); WBC 13.3 10x3/uL (4.8-10.8)
[2019-07-01 07:09] LABS: ALBUMIN 1.9 g/dL (3.4-5.0); ALKALINE PHOSPHATASE 107 U/L (46-116); ALT (SGPT) 76 U/L (10-68); BILIRUBIN - TOTAL 0.76 mg/dL (0.2-1.3); CALC OSMOLALITY 286 mosm/kg (275-300); CALCIUM 7.9 mg/dL (8.5-10.1); CARBON DIOXIDE 29.3 mmol/L (21.0-32.0); CHLORIDE - SERUM 106 mmol/L (98-107); CREATININE - SERUM 0.9 mg/dL (0.6-1.3); GLUCOSE 105 mg/dL (74-106); POTASSIUM - SERUM 3.7 mmol/L (3.5-5.1); PROTEIN - SERUM 5.8 g/dL (6.4-8.2); SODIUM 143 mmol/L (136-145); UREA NITROGEN 17 mg/dL (7-18); eGFR NON AFRICAN AMERICAN > 90 mL/min (90-120)
--- NOTE | 2019-07-01 14:25 | NUR ---
1200-DR LIN AT BEDSIDE-PT UP IN CHAIR 1300-PT AMBULATED IN WITH ASSIST OF PHYSICAL THERAPY-CHRONIC R HIP-USE OFWALKER-REMAINED ON VAPOTHERM 1400-DR [place] AT [facility]
--- NOTE | 2019-07-01 19:04 | NUR ---
ORAL CARE DONE WITH PERIDEX
--- NOTE | 2019-07-01 19:15 | NUR ---
Received patient resting in bed with eyes open, assessment completed per flowsheet. Patient AO x4, answers appropriately/follows instructions. S1/S2 noted NSR on telemetry, rythmic and regular. Breathing is even/unlabored on Vapotherm 40L @ 60% with O2 sat 94%, lung sounds clear bilateral upper and mid with diminished lower. Midline sternum/Substernal dressing CDI, Alcides x1 substernal compressed, small blood noted. Abdomen is round/soft with bowel sounds active x4, non-tender. Criticore secured, clear yellow urine noted. Bilateral leg harvest sites open to air, well approximated. All pulses palpable with cap refill < 3 sec, skin warm/dry. C/O chronic hip/back ache 2/10 post PRN medication, repositioned with some stated relief. No further needs at this time, see flowsheet for details. All VSS and will continue to monitor.
--- NOTE | 2019-07-01 21:00 | NUR ---
Patient resting in bed with eyes open, HS meds given without difficulty. Repositioned for comfort, denies needs at this time and will continue to monitor.
--- NOTE | 2019-07-01 23:15 | NUR ---
Reassessment completed per flowsheet, no changes noted from previous assessment. S1/S2 noted NSR on telemetry, rythmic and regular. Breathing is even/unlabored on BiPAP 50% with O2 sat 95%, lung sounds clear bilateral upper and mid with diminished lower. Midsternal/Substernal dressing CDI, substernal Alcides x1 with scant serosanguinous drainage. All pulses palpable with cap refill < 3 sec, skin warm/dry. Denies pain or other needs at this time, see flowsheet for details. All VSS and will continue to monitor.
[2019-07-02] VITALS (24 sets, daily range): BP systolic 116–161; BP diastolic 46–77
--- NOTE | 2019-07-02 01:00 | NUR ---
Patient sleeping in bed with BiPAP 50% and O2 sat 95%, no s/s of distress. Repositioned for comfort, no further needs and will continue to monitor.
--- NOTE | 2019-07-02 02:55 | NUR ---
Reassessment completed per flowsheet, no changes noted from previous assessment. S1/S2 noted NSR on telemetry, rythmic and regular. Breathing is even/unlabored on BiPAP 50% with O2 sat 94%, lung sounds clear bilateral upper and mid with diminished lower. Midline sternum/substernal dressing CDI, Alcides x1 substernal with scant serous drainage. Bilateral leg harvest sites open to air, well approximated. All pulses palpable with cap refill < 3 sec, skin warm/dry. Repositioned for comfort, see flowsheet for details. All VSS and will continue to monitor.
--- NOTE | 2019-07-02 05:00 | NUR ---
Patient sleeping in bed with BiPAP 50% and O2 sat 94%, no s/s of distress at this time. Repositioned for comfort, denies pain or other needs at this time and will continue to monitor.
--- NOTE | 2019-07-02 07:54 | NUR ---
RECIEVED AWAKE AND NOUCZ-[id number] PROCESS OF DOING INCENTIVE WITH 1200TV-STATED JUST FINISHED FLUTTER VALVE-ASSISTED TO BEDSIDE CHAIR WITH MINIMAL ASSIST
--- NOTE | 2019-07-02 11:27 | NUR ---
AMBULATED WITH PHYSICAL THERAPY-TOLERATED WELL 1120-RT AT BEDSIDE AND CHANGED TO OXIMYZER 5L-TOLERATING WELL BY PT
--- NOTE | 2019-07-02 16:26 | NUR ---
1300-DR LIN AT BEDSIDE-ADDRESSED PT CURRENT QUESTIONS-OUTLINED PLAN OF CARE 1330-PRADO CATHETER D/C'D WITH TIP INTACT-TOLERATED WELL BY PT-R AC IV STARTED-WITH 20G -R IJ D/C'D WITH TIP INTACT WITH PROTOCOL-O2 TITRATED TO 6/ OXIMYZER BY RT 1400-PT AMBULATED WITH PHYSICAL THERAPY IN [facility]-PLACED ON 8L HIGH FLOW-PORT TELE AND O2 SAT
--- NOTE | 2019-07-02 19:00 | NUR ---
PT ASSESSMENT COMPLETED AT THIS TIME, NO CHANGES NOTED FROM NURSE REPORT, VSS, NO DISTRESS NOTED
--- NOTE | 2019-07-02 19:32 | NUR ---
ORAL CARE DONE WITH PERIDEX
--- NOTE | 2019-07-02 22:00 | NUR ---
DRESSIGN CHANGED TO MIDSTERNAL INCISION DUE TO THE DRESSING COMING PARTIAL OFF AND NOT STICKING TO THE SKIN ON A LARGE PORTION OF THE DRESSING, SUBSTERNAL DRESSING DONE DUE TO THE DRESSING BEING SECURED OVER THE MIDSTERNAL DRESSING. ASEPTIC TECHNIQUE WAS USED, ALONG WITH STERILE GLOVES AND DRESSINGS
[2019-07-03] VITALS (24 sets, daily range): BP systolic 105–149; BP diastolic 54–76
--- NOTE | 2019-07-03 01:00 | NUR ---
PT RESTING WITH EYES CLOSED, NO DISTRESS NOTED, VSS, WILL CONT. TO MONITOR
--- NOTE | 2019-07-03 03:00 | NUR ---
PT REASSESSMENT COMPLETED AT THIS TIME, NO CHANGES NOTED, VSS, WILL MONITOR FOR CHANGES
--- NOTE | 2019-07-03 05:00 | NUR ---
PT ASSISTED UP TO THE BATHROOM AT THIS TIME, PT STATES THAT HIS LEFT UPPER BACK WAS GETTING SORE, VSS, NO DISTRESS NOTED
--- NOTE | 2019-07-03 05:30 | NUR ---
PT GIVEN HCG BATH AND COMPLETE LINEN CHANGED, PT ASSISTED UP TO BEDSIDE CHAIR
--- NOTE | 2019-07-03 07:00 | NUR ---
REPORT RECEVIED FROM THE OFF GOING RN. SEE ASSESSMENT IN THE PTS FLOW SHEET. PT SITTING OOB AND IN HIS BEDSIDE CHAIR. VSS. PT ON RA. NSR ON THE MONITOR. BREAKFAST TRAY PROVIDED FOR THE PT. CALL LIGHT IN REACH. WILL CONT POC.
--- NOTE | 2019-07-03 07:00 | NUR ---
REPORT RECEVIED FROM THE OFF GOING RN. SEE ASSESSMENT IN THE PTS FLOW SHEET. PT SITTING OOB IN HIS BEDSIDE CHAIR. NSR ON THE MONITOR. 6L VIA NC. CALL LIGHT IN REACH. BREAKFAST TRAY PROVIDED FOR THE PTS. WILL CONT POC.
--- NOTE | 2019-07-03 08:55 | NUR ---
AM MEDS GIVEN WITH NO ISSUES
--- NOTE | 2019-07-03 09:15 | NUR ---
NUTRITION F/U PT TOLERATING AHA DIET, GOOD PO INTAKE BREAKFAST. WILL CONTINUE TO PROVIDE DIET, MONITOR PO INTAKE. RD FOLLOWING
--- NOTE | 2019-07-03 10:24 | NUR ---
PT AMBULATED WITH PHYSCIAL THEARPY ABOUT 250 FEET. PT ASSISTED BACK INTO BED.
[2019-07-03 11:42] LABS: BASOPHILS 0.3 % (0-2); HEMATOCRIT 31.9 % (42.0-54.0); HEMOGLOBIN 10.2 g/dL (13.5-17.5); IMMATURE GRANULOCYTES 0.7 % (0-5); LYMPHOCYTES 15.4 % (15-50); MCH 29.8 pg (26.0-34.0); MCV 93.3 fL (80.0-100.0); MEAN PLATELET VOLUME 9.3 fL (7.4-10.4); MONOCYTES 6.7 % (2-11); NEUTROPHILS 72.9 % (40-80); PLATELET COUNT 369 10x3/uL (130-400); RBC 3.42 10x6/uL (4.20-6.10); WBC 13.8 10x3/uL (4.8-10.8)
[2019-07-03 11:49] LABS: CALC OSMOLALITY 279 mosm/kg (275-300); CALCIUM 8.3 mg/dL (8.5-10.1); CARBON DIOXIDE 28.1 mmol/L (21.0-32.0); CHLORIDE - SERUM 102 mmol/L (98-107); CREATININE - SERUM 0.9 mg/dL (0.6-1.3); GLUCOSE 143 mg/dL (74-106); POTASSIUM - SERUM 3.6 mmol/L (3.5-5.1); SODIUM 138 mmol/L (136-145); UREA NITROGEN 19 mg/dL (7-18); eGFR NON AFRICAN AMERICAN > 90 mL/min (90-120)
--- NOTE | 2019-07-03 11:50 | NUR ---
CLAUDE DRAIN AND TPM WIRES DC'D PER ORDERS. PT TOLERATED WELL. WILL CONT POC.
--- NOTE | 2019-07-03 12:04 | NUR ---
IV OUT. CATH TIP INTACT.
--- NOTE | 2019-07-03 15:00 | NUR ---
REASSESSMENT COMPELTED. SEE FLOW SHEET. WILL CONT POC.
--- NOTE | 2019-07-03 16:00 | NUR ---
PT AMBULATED WITH HIS UP AND DOWN THE [address] WAY. NORMAL STEADY GAIT NOTED WHILE USING HIS WALKER. PT TOLERATED WELL. WILL CONT POC.
--- NOTE | 2019-07-03 19:00 | NUR ---
PT SITTING UP IN CHAIR, ASSESSMENT COMPLETED, NO COMPLAINTS, OR DISTRESS NOTED, NO CHANGES SEEN FROM NURSE REPORT, VSS, WILL CONT TO MONITOR
--- NOTE | 2019-07-03 21:00 | NUR ---
PT SITTING UP IN CHAIR NO COMPLAINTS AT THIS TIME, VSS, WILL MONITOR FOR CHANGES
--- NOTE | 2019-07-03 23:00 | NUR ---
PT REASSESSMENT COMPLETED AT THIS TIME, NO CAHNEGS NOTED, PT ASSISTED UP TO BATHROOM WITH STAND BY ASSIST, NO COMPLAINTS OR DISTRESS NOTED, VSS, WILL MONITOR FOR CHANGES
[2019-07-04] VITALS (24 sets, daily range): BP systolic 115–148; BP diastolic 55–94
--- NOTE | 2019-07-04 01:00 | NUR ---
PT RESTING WITH EYES CLOSE, RESP EVEN NON LABORED, VSS
--- NOTE | 2019-07-04 03:00 | NUR ---
PT REASSESSMENT COMPLETED AT THIS TIME NO CHANGES NOTED, VSS, WILL CONT TO MONITOR FOR CHANGES
--- NOTE | 2019-07-04 03:30 | NUR ---
REPORT RECIEVED. CARE ASSUMED. PT IS SITTING IN A CHAIR AT BEDSIDE. DENIES NEEDS
--- NOTE | 2019-07-04 05:00 | NUR ---
PT TAKEN TO XRAY AND ASSISTED TO BEDSIDE CHAIR WHEN HE RETURNED, NO DISTRESS NOTED, VSS
[2019-07-04 05:10] LABS: BASOPHILS 0.3 % (0-2); EOSINOPHILS 5.1 % (0-7); HEMATOCRIT 29.6 % (42.0-54.0); HEMOGLOBIN 9.2 g/dL (13.5-17.5); IMMATURE GRANULOCYTES 0.8 % (0-5); LYMPHOCYTES 17.9 % (15-50); MCH 29.1 pg (26.0-34.0); MCHC 31.1 g/dL (31.0-37.0); MCV 93.7 fL (80.0-100.0); MEAN PLATELET VOLUME 9.4 fL (7.4-10.4); MONOCYTES 10.1 % (2-11); NEUTROPHILS 65.8 % (40-80); PLATELET COUNT 416 10x3/uL (130-400); RBC 3.16 10x6/uL (4.20-6.10); RDW 13.9 % (11.5-14.5); WBC 12.1 10x3/uL (4.8-10.8)
[2019-07-04 05:37] LABS: ALBUMIN 2.1 g/dL (3.4-5.0); ALKALINE PHOSPHATASE 102 U/L (46-116); ALT (SGPT) 91 U/L (10-68); BILIRUBIN - TOTAL 0.43 mg/dL (0.2-1.3); CALC OSMOLALITY 280 mosm/kg (275-300); CALCIUM 8.2 mg/dL (8.5-10.1); CARBON DIOXIDE 28.2 mmol/L (21.0-32.0); CHLORIDE - SERUM 104 mmol/L (98-107); CREATININE - SERUM 0.9 mg/dL (0.6-1.3); GLUCOSE 121 mg/dL (74-106); MAGNESIUM - SERUM 1.9 mg/dL (1.8-2.4); PHOSPHOROUS 3.9 mg/dL (2.5-4.9); POTASSIUM - SERUM 3.6 mmol/L (3.5-5.1); SODIUM 139 mmol/L (136-145); UREA NITROGEN 17 mg/dL (7-18); eGFR NON AFRICAN AMERICAN > 90 mL/min (90-120)
--- NOTE | 2019-07-04 07:00 | NUR ---
RECEIVED BEDSIDE REPORT ON PATIENT AND ASSUMED CARE. PATIENT ALERT AND ORIENTED X 4, SITTING IN BEDSIDE CHAIR. VSS. NO C/O PAIN. PATIENT WITH 22 GA IV TO L AC SALINE LOCKED. BBS - CLEAR BUT DIMINISHED IN BASES, ON O2 AT 4 LPM VIA NC WITH SPO2 - 96%. CM - SR. HEAD TO TOE ASSESSMENT COMPLETED.
--- NOTE | 2019-07-04 08:12 | NUR ---
PATIENT UP TO BATHROOM FOR BM, BACK TO BESIDE CHAIR. UTILIZES WALKER. TOLERATES WELL. ATE 100% OF BREAKFAST.
--- NOTE | 2019-07-04 09:10 | NUR ---
PATIENT SITTING UP IN BEDSIDE CHAIR, VSS. NO NEEDS AT THIS TIME.
--- NOTE | 2019-07-04 11:05 | NUR ---
REASSESSMENT COMPLETED. VSS.
--- NOTE | 2019-07-04 13:17 | NUR ---
PATIENT SITTING UP IN BEDSIDE CHAIR. VSS. NO NEEDS AT THIS TIME.
--- NOTE | 2019-07-04 16:30 | NUR ---
PT BATHED AT BEDSIDE BY .
--- NOTE | 2019-07-04 19:53 | NUR ---
REPORT RECEIVED. PT UP IN CHAIR WATCHING TV. DENIES PAIN. FRESH CUP OF ICE WATER GIVEN. VSS. NO OTHER NEEDS MADE KNOWN. CALL LIGHT IN REACH.
--- NOTE | 2019-07-04 22:15 | NUR ---
PT RECEIVED SCHEDULED MEDICATIONS, REFUSES SENNA AND COLACE DUE TO SEVERAL BM AND BEGINNING TO BECOME LOOSE. PT IN BED WATCHING TV. VSS. WILL CONTINUE TO OBSERVE.
[2019-07-05] VITALS (12 sets, daily range): BP systolic 117–152; BP diastolic 54–77
--- NOTE | 2019-07-05 01:31 | NUR ---
PT WITH EYES CLOSED AND CHEST RISING. ON BIPAP. NO S/S OF DISTRESS. CALL LIGHT IN REACH. WILL CONTINUE TO OBSERVE.
--- NOTE | 2019-07-05 03:58 | NUR ---
PT WITH EYES CLOSED AND CHEST RISING. EASILY AWOKEN TO VERBAL STIMULI. NO NEEDS MADE KNOWN. CALL LIGHT IN REACH. WILL CONTINUE TO OBSERVE.
--- NOTE | 2019-07-05 05:45 | NUR ---
PT DOWN TO IMAGING VIA WHEELCHAIR AND RETURNED. PT UP TO CHAIR. NO COMPLAINTS OR NEEDS MADE KNOWN. CALL LIGHT IN REACH. WILL CONTINUE TO OBSERVE.
[2019-07-05 06:13] LABS: CALC OSMOLALITY 278 mosm/kg (275-300); CALCIUM 8.4 mg/dL (8.5-10.1); CARBON DIOXIDE 27.9 mmol/L (21.0-32.0); CHLORIDE - SERUM 103 mmol/L (98-107); CREATININE - SERUM 0.8 mg/dL (0.6-1.3); GLUCOSE 120 mg/dL (74-106); POTASSIUM - SERUM 3.9 mmol/L (3.5-5.1); SODIUM 139 mmol/L (136-145); UREA NITROGEN 13 mg/dL (7-18); eGFR NON AFRICAN AMERICAN > 90 mL/min (90-120)
--- NOTE | 2019-07-05 08:57 | NUR ---
0700 PT RECIEVED UP IN CHAIR ALERT AND ORIENTED L AC PIV SL, DENIES PAIN, MIDSTERNAL AND SUBSTERNAL DRESSING CDI, SEE SHIFT ASSESSMENT FOR DETAILS 0845 AM MEDS GIVEN, DENIES ALL NEEDS
[2019-07-05] MEDS ORDERED: PERCOCET 5-3251 TAB PO (12:33)
--- NOTE | 2019-07-05 12:35 | MORECARE ---
CASE MANAGEMENT DISCHARGE SUMMARY PATIENT: KADEN POWERS UNIT: [id number] ADM DATE: 06/26/19 AGE: 59 : 56 SEX: M ROOM/BED: [facility] AUTHOR: DAVID,DOC PHYSICIAN: REFERRING PHYSICIAN: NEREYDA MOON MD DATE OF SERVICE: 07/05/19 Discharge Plan Patient Name: KADEN POWERS Facility: [facility]:[place] : 1960 Planned Disposition: Home Anticipated Discharge Date: Discharge Date: Expected LOS: Initial Reviewer: [email or web address] Initial Review Date: 06/28/2019 Generated: 07/05/19 1:35 pm DCP- Discharge Planning Updated by [email or web address]: Soniya Lynn on 06/28/19 6:[address] Patient Name: KADEN POWERS Admission Status: Urgent Accout number: [id number] Admission Date: 06-26-2019 : 1960 Admission Diagnosis: Attending: NEREYDA MOON Current LOS: 2 Anticipated DC Date: Planned Disposition: Home Primary Insurance: [employer]ER Discharge Planning Comments: CM met with patient's (Patient is currently on vent/ sedated) at bedside after explaining CM role and obtaining verbal consent. Patient lives at home with his Tamiko where he is independent with his care and plans to return there upon discharge. Patient's feels this would be a safe discharge. CM discussed availability / needs of home health and medical equipment. Tamiko states that she wishes patient to have home 02 upon discharge. CM explained the requirements for home 02 and stated patient will be evaluated before discharge. Tamiko states that at home patient's pulse ox would run 79 -85% Patient denies any discharge needs at this time. Tamiko states he will have his family drive him home upon discharge. CM will continue to follow and assist as needed with discharge planning / needs. Operations And Maintenance Technican: Soniya Lynn DCPIA - Discharge Planning Initial Assessment Updated by [id number]: Soniya Lynn on 06/28/19 6:18 pm * How many steps to enter\exit or inside your home? * PCP Amanda * Pharmacy [facility] * Preadmission Environment Home with Family * ADLs Independent * Equipment Cane * List name and contact numbers for known caregivers / representatives who currently or will assist patient after discharge: TAMIKO POWERS - - [phone] * Verbal permission to speak to the caregivers and representatives has been obtained from the patient. N/A * Community resources currently utilized None * Additional services required to return to the preadmission environment? No * Can the patient safely return to the preadmission environment? Yes * Has this patient been hospitalized within the prior 30 days at any hospital? No External Providers External Provider: [facility] Next Contact Date: Service Request Date: Service Type: Resolution: Reviewer: Comments: Last DP export: 06/28/19 6:46 Patient Name: KADEN POWERS Page 16202 at 1235 All edits/amendments must be made on the electronic document DICTATION DATE: 07/05/19 1234 WELT EDGE ROUNDER: IRMA 07/05/19 1234 RPT#: [id number] DC DATE: STATUS: ADM IN [facility] [address] [place] [address] END OF REPORT
--- NOTE | 2019-07-05 12:51 | MORECARE ---
CASE MANAGEMENT DISCHARGE SUMMARY PATIENT: KADEN POWERS UNIT: [id number] ADM DATE: 06/26/19 AGE: 59 : 56 SEX: M [facility] AUTHOR: DAVID,DOC PHYSICIAN: REFERRING PHYSICIAN: NEREYDA MOON MD DATE OF SERVICE: 07/05/19 Discharge Plan Patient Name: KADEN POWERS Facility: [facility]:[place] : 1960 Planned Disposition: Home Anticipated Discharge Date: Discharge Date: Expected LOS: Initial Reviewer: [email or web address] Initial Review Date: 06/28/2019 Generated: 07/05/19 1:50 pm Comments DCP- Discharge Planning Updated by [email or web address]: Soniya Lynn on 07/05/19 11:[address] CM received orders to eval patient for 02 needs and nebulizer upon discharge. MARISELA signed for [facility] fax Patient had walk test and qualified for home 02. CM called [facility] and explained that patient will be discharged today and faxed over orders and records. CM will continue to follow and assist as needed with discharge planning / needs DCP- Discharge Planning Updated by [email or web address]: Soniya Lynn on 06/28/19 6:[address] Patient Name: KADEN POWERS Admission Status: Urgent Accout number: [id number] Admission Date: 06-26-2019 : 1960 Admission Diagnosis: Attending: NEREYDA MOON Current LOS: 2 Anticipated DC Date: Planned Disposition: Home Primary Insurance: [employer]ER Discharge Planning Comments: CM met with patient's (Patient is currently on vent/ sedated) at bedside after explaining CM role and obtaining verbal consent. Patient lives at home with his Tamiko where he is independent with his care and plans to return there upon discharge. Patient's feels this would be a safe discharge. CM discussed availability / needs of home health and medical equipment. Tamiko states that she wishes patient to have home 02 upon discharge. CM explained the requirements for home 02 and stated patient will be evaluated before discharge. Tamiko states that at home patient's pulse ox would run 79 -85% Patient denies any discharge needs at this time. Tamiko states he will have his family drive him home upon discharge. CM will continue to follow and assist as needed with discharge planning / needs. Chuck Tender: Soniya JACK - Discharge Planning Initial Assessment Updated by [email or web address]: Soniya Lynn on 06/28/19 6:18 pm * How many steps to enter\exit or inside your home? * PCP Amanda * Pharmacy [facility] * Preadmission Environment Home with Family * ADLs Independent * Equipment Cane * List name and contact numbers for known caregivers / representatives who currently or will assist patient after discharge: TAMIKO POWERS - - [phone] * Verbal permission to speak to the caregivers and representatives has been obtained from the patient. N/A * Community resources currently utilized None * Additional services required to return to the preadmission environment? No * Can the patient safely return to the preadmission environment? Yes * Has this patient been hospitalized within the prior 30 days at any hospital? No Last DP export: 07/05/19 11:35 a Patient Name: KADEN POWERS Page 48753 at 1251 All edits/amendments must be made on the electronic document DICTATION DATE: 07/05/191249 STONE PRODUCT FABRICATOR: IRMA 07/05/19 125 RPT#: [id number] DC DATE: STATUS: ADM IN [facility] [address] [place] [address] END OF REPORT
[2019-07-05] MEDS ORDERED: LOPRESSOR25 MG PO (12:56)
[2019-07-05] MEDS ORDERED: COLACE100 MG PO (12:58)
--- NOTE | 2019-07-05 13:53 | NUR ---
1100 AMBULATED WITH PT 1200 [id number]% LUNCH 1300 DC INSTRUCTIONS REVIEWED WITH PT BY ANGE LOPEZ AND MYSLEF, PT AND DENY QUESTIONS 1340 02 ARRIVED, PT DEIES QUESTIONS ON USE. PIV DCD 1345 DCD HOME
--- NOTE | 2019-07-05 19:47 | MORECARE ---
CASE MANAGEMENT DISCHARGE SUMMARY PATIENT: KADEN POWERS UNIT: [id number] ADM DATE: 06/26/19 AGE: 59 : 56 SEX: M ROOM/BED: [facility] AUTHOR: DAVID,DOC PHYSICIAN: REFERRING PHYSICIAN: NEREYDA MOON MD DATE OF SERVICE: 07/05/19 Discharge Plan Patient Name: KADEN POWERS Facility: [facility]:[place] : 1960 Planned Disposition: Home Anticipated Discharge Date: Discharge Date: 07/05/2019 Expected LOS: Initial Reviewer: [email or web address] Initial Review Date: 06/28/2019 Generated: 07/05/19 8:46 pm Comments DCP- Discharge Planning Updated by [email or web address]: Soniya Lynn on 07/05/19 11:[address] CM received orders to eval patient for 02 needs and nebulizer upon discharge. MARISELA signed for [facility] fax Patient had walk test and qualified for home 02. CM called [facility] and explained that patient will be discharged today and faxed over orders and records. CM will continue to follow and assist as needed with discharge planning / needs DCP- Discharge Planning Updated by [email or web address]: Soniya Lynn on 06/28/19 6:[address] Patient Name: KADEN POWERS Admission Status: Urgent Accout number: [id number] Admission Date: 06-26-2019 : 1960 Admission Diagnosis: Attending: NEREYDA MOON Current LOS: 2 Anticipated DC Date: Planned Disposition: Home Primary Insurance: TRICAREER Discharge Planning Comments: CM met with patient's (Patient is currently on vent/ sedated) at bedside after explaining CM role and obtaining verbal consent. Patient lives at home with his Tamiko where he is independent with his care and plans to return there upon discharge. Patient's feels this would be a safe discharge. CM discussed availability / needs of home health and medical equipment. Tamiko states that she wishes patient to have home 02 upon discharge. CM explained the requirements for home 02 and stated patient will be evaluated before discharge. Tamiko states that at home patient's pulse ox would run 79 -85% Patient denies any discharge needs at this time. Tamiko states he will have his family drive him home upon discharge. CM will continue to follow and assist as needed with discharge planning / needs. Housekeeper Nanny: Soniya Lynn DCPIA - Discharge Planning Initial Assessment Updated by [email or web address]: Soniya Lynn on 06/28/19 6:18 pm * How many steps to enter\exit or inside your home? * PCP Amanda * Pharmacy [facility] * Preadmission Environment Home with Family * ADLs Independent * Equipment Cane * List name and contact numbers for known caregivers / representatives who currently or will assist patient after discharge: TAMIKO POWERS - - [phone] * Verbal permission to speak to the caregivers and representatives has been obtained from the patient. N/A * Community resources currently utilized None * Additional services required to return to the preadmission environment? No * Can the patient safely return to the preadmission environment? Yes * Has this patient been hospitalized within the prior 30 days at any hospital? No Last DP export: 07/05/19 11:51 a Patient Name: KADEN POWERS Page 65176 at 1947 All edits/amendments must be made on the electronic document DICTATION DATE: 07/05/191945 PRODUCT MERCHANDISER: IRMA 07/05/191945 RPT#: [id number] DC DATE:07/05/19 STATUS: DIS IN [facility] [address] [place] [address] END OF REPORT
[2019-07-08 07:18] LABS: FUNGUS CULTURE RESULT 1 Candida albicans (())
[2019-08-02 12:09] LABS: FUNGUS MYCOLOGY CULTURE Final report (())
== END 2019-07-05 13:45 | disposition home or self-care (01) | DRG 235 ==
LOC: D.SDCHOLD 10:30 → D.CVICU 06-26 05:05 → D.SDCHOLD 06-26 07:30 → D.CVICU 06-26 12:35
PROVIDERS: Internal Medicine Cardiovascular Disease; Internal Medicine Pulmonary Disease; ADMIT Thoracic Surgery (Cardiothoracic Vascular Surgery); ATTEND Thoracic Surgery (Cardiothoracic Vascular Surgery)
PROC: 021109W Bypass Coronary Artery, Two Arteries from Aorta with Autologous Venous Tissue, Open Approach (ICD-10-PCS; 2019-06-26)
PROC: 06BQ0ZZ Excision of Left Saphenous Vein, Open Approach (ICD-10-PCS; 2019-06-26)
PROC: 5A1221Z Performance of Cardiac Output, Continuous (ICD-10-PCS; 2019-06-26)
PROC: B24BZZ4 Ultrasonography of Heart with Aorta, Transesophageal (ICD-10-PCS; 2019-06-26)
PROC: 5A1945Z Respiratory Ventilation, 24-96 Consecutive Hours (ICD-10-PCS; 2019-06-26)
PROC: 0BH17EZ Insertion of Endotracheal Airway into Trachea, Via Natural or Artificial Opening (ICD-10-PCS; 2019-06-26)
PROC: 02100Z9 Bypass Coronary Artery, One Artery from Left Internal Mammary, Open Approach (ICD-10-PCS; principal; 2019-06-26 07:30)
PROC: 0B9B8ZZ Drainage of Left Lower Lobe Bronchus, Via Natural or Artificial Opening Endoscopic (ICD-10-PCS; 2019-06-28)
PROC: 0B968ZZ Drainage of Right Lower Lobe Bronchus, Via Natural or Artificial Opening Endoscopic (ICD-10-PCS; 2019-06-28)
DX: I25.10 Atherosclerotic heart disease of native coronary artery without angina pectoris (principal); J96.01 Acute respiratory failure with hypoxia; D62 Acute posthemorrhagic anemia; J81.1 Chronic pulmonary edema; J98.11 Atelectasis; T17.590A Other foreign object in bronchus causing asphyxiation, initial encounter; I10 Essential (primary) hypertension; E78.5 Hyperlipidemia, unspecified; E11.9 Type 2 diabetes mellitus without complications; K21.9 Gastro-esophageal reflux disease without esophagitis; J30.9 Allergic rhinitis, unspecified; D72.819 Decreased white blood cell count, unspecified; G47.33 Obstructive sleep apnea (adult) (pediatric); J44.9 Chronic obstructive pulmonary disease, unspecified; B96.1 Klebsiella pneumoniae [K. pneumoniae] as the cause of diseases classified elsewhere; R53.81 Other malaise

== ENCOUNTER → 2019-08-09 11:49 | Outpatient (CLI) | payer OTHER ==
[2019-06-27 17:29] VITALS: BMI 39.6
[~2019-08-09 11:49] MED LIST changes: +BAYER CHEWABLE81 MG PO; +COLACE100 MG PO; +LOPRESSOR25 MG PO; +PERCOCET 5-3251 TAB PO
[2019-08-09 12:25] LABS: BASOPHILS 0.5 % (0-2); EOSINOPHILS 3.4 % (0-7); HEMATOCRIT 40.9 % (42.0-54.0); HEMOGLOBIN 12.9 g/dL (13.5-17.5); IMMATURE GRANULOCYTES 0.3 % (0-5); MCH 28.4 pg (26.0-34.0); MCHC 31.5 g/dL (31.0-37.0); MCV 90.1 fL (80.0-100.0); MEAN PLATELET VOLUME 9.9 fL (7.4-10.4); MONOCYTES 7.1 % (2-11); NEUTROPHILS 59.7 % (40-80); PLATELET COUNT 347 10x3/uL (130-400); RBC 4.54 10x6/uL (4.20-6.10); WBC 10.6 10x3/uL (4.8-10.8)
[2019-08-09 12:45] LABS: CALC OSMOLALITY 285 mosm/kg (275-300); CALCIUM 9.2 mg/dL (8.5-10.1); CHLORIDE - SERUM 105 mmol/L (98-107); GLUCOSE 96 mg/dL (74-106); POTASSIUM - SERUM 4.9 mmol/L (3.5-5.1); SODIUM 143 mmol/L (136-145); UREA NITROGEN 16 mg/dL (7-18); eGFR NON AFRICAN AMERICAN 81 mL/min (90-120)
== END | disposition home or self-care (01) ==
LOC: D.LAB 11:49
PROVIDERS: ATTEND Thoracic Surgery (Cardiothoracic Vascular Surgery)
DX: Z09 Encounter for follow-up examination after completed treatment for conditions other than malignant neoplasm (principal)

== ENCOUNTER → 2019-11-20 16:36 | Outpatient (CLI) | payer OTHER ==
[2019-06-27 17:29] VITALS: BMI 39.6
[2019-11-20 18:45] LABS: CHOL - HDL RATIO 3.5 ratio (2.3-4.9); LDL-HDL RATIO 1.9 ratio (1.5-3.5)
== END | disposition home or self-care (01) ==
LOC: D.LABREF 16:36
PROVIDERS: ATTEND Internal Medicine Cardiovascular Disease
DX: E78.5 Hyperlipidemia, unspecified (principal)

== ENCOUNTER → 2019-12-28 12:37 | Outpatient (CLI) | payer OTHER ==
[2019-06-27 17:29] VITALS: BMI 39.6
== END | disposition home or self-care (01) ==
LOC: D.RT 12:37
PROVIDERS: ATTEND Internal Medicine Pulmonary Disease
DX: J44.9 Chronic obstructive pulmonary disease, unspecified (principal); J90 Pleural effusion, not elsewhere classified

== ENCOUNTER → 2020-02-22 11:33 | Outpatient (CLI) | payer OTHER ==
[2019-06-27 17:29] VITALS: BMI 39.6
[2020-02-22 12:42] LABS: C-REACTIVE PROTEIN 1.6 mg/dL (0.0-0.9); URIC ACID 6.1 mg/dL (2.6-7.2)
[2020-02-22 13:49] LABS: ERYTHROCYTE SEDIMENTATION RATE 18 mm/hr (0-20)
== END | disposition home or self-care (01) ==
LOC: D.RAD 11:33
PROVIDERS: ATTEND Family Medicine
DX: M25.561 Pain in right knee (principal); M25.551 Pain in right hip; I25.10 Atherosclerotic heart disease of native coronary artery without angina pectoris; E11.9 Type 2 diabetes mellitus without complications; J44.9 Chronic obstructive pulmonary disease, unspecified

== ENCOUNTER → 2020-03-19 08:47 | Outpatient (CLI) | payer OTHER ==
[2019-06-27 17:29] VITALS: BMI 39.6
--- NOTE | ~2020-03-19 | HEMODYNAMI ---
PATIENT:KADEN POWERS MEDICAL RECORD: [id number] : 56 [id number] ADMISSION DATE: 03/19/20 Generatedon:03/19/202010:10 Patient name: KADEN POWERS Patient #: [id number] SSN: [id number] : 1960 Date of study: 03/19/2020 Page: Of Hemodynamic Procedure Report Patient Data Patient Demographics Procedure consent was obtained First Name: KADEN Gender: Male Last Name: PRIYA : 1960 Middle Initial: RAY Age: 60 year(s) Patient #: [id number] Race: Unknown SSN: [id number] Additional ID: [id number] Contact details Address: [address] [place] [address] State: [place] City: [place] Zip code: [address] Past Medical History Allergies Allergen Reaction Date Comments Reported Other allergy 06/20/2019 shell fish Admission Admission Data Admission Date: 03/19/2020 Admission Time: 8:47 Procedure Procedure Types Cath Procedure Peripheral Cath Diagnostic Procedure Miscellaneous Aspiration/Injection (Joint) Procedure Description Procedure Date Procedure Date: 03/19/2020 Procedure Start Time: 9:58 Procedure Staff Name Function Nikolas Anderson MD Performing Physician Lance Braun RT Monitor Procedure Data Cath Procedure Fluoroscopy Diagnostic fluoroscopy Total fluoroscopy Time: 1.2 time: 1.2 min min Diagnostic fluoroscopy Total fluoroscopy dose: 17 dose: 17 mGy mGy Hemodynamics Rest Pre Cath Intra NCS Post Cath Procedure Log Time Note 9:47:07 Lance Braun RT (R) (CV) sent for patient. Start room use. 9:47:14 Time tracking: Regular hours (M-F 7:00 - 5:00) 9:47:21 Patient received from Outpatients to IR Alert and oriented. Tansferred to table in Supine position. 9:47:24 Signed procedure consent form obtained from patient. 9:47:25 Correct patient and procedure confirmed by team. 9:47:27 Full Disclosure recording started 9:47:30 Pre-procedure instructions explained to patient. 9:47:30 Pre-op teaching completed and patient verbalized understanding. 9:47:42 Is patient on blood thinner?No 9:47:51 Right Hip was prepped with betadine and draped in sterile fashion. 9:58:09 Physician arrived 9:58:10 --------ALL STOP TIME OUT------ 9:58:11 Final Timeout: patient, procedure, and site verified with staff and physician. All members of the team are in agreement. 9:58:14 Right groin site verified by team. 9:58:22 Sedation plan: Local Anesthetic Medication:Lidocaine 9:58:30 Procedure started. 9:58:38 Local anesthetic to Right Hip with Lidocaine 1% by Nikolas Anderson MD.INITIAL ACCESS ONLY 9:58:44 SAFE-T PLUS MYELOGRAM TRAY opened to sterile field. 10:07:37 Procedure ended.(Physican Out) 10:08:00 Fluoroscopy time 01.20 minutes. 10:08:12 Fluoroscopy dose: 17 mGy 10:08:12 Flurop Dose total: 17 10:08:59 SITE STABLE BANDAIDE APPLIED TO RT HIP PATIENT SENT HOME Device Usage Item Name Manufacture Quantity Catalog Hospital Part Current Minimal Lot# / Number Charge Number Stock Stock Serial# Code SAFE-T [employer] 1 [id number] PLUS MYELOGRAM TRAY Signature [facility] [place] Stage Time Signature Unsigned Intra-Procedure 03/19/2020 Lance 10:10:51 AM [facility] RT (R) (CV) [place] [id number] [place] [address]
== END | disposition home or self-care (01) ==
LOC: D.RAD 08:47
PROVIDERS: ATTEND Clinical Nurse Specialist Family Health
DX: M16.11 Unilateral primary osteoarthritis, right hip (principal)

== ENCOUNTER → 2020-05-27 13:23 | Outpatient (CLI) | payer OTHER ==
[2019-06-27 17:29] VITALS: BMI 39.6
== END | disposition home or self-care (01) ==
LOC: D.MRI 13:23
PROVIDERS: ATTEND Orthopaedic Surgery
DX: M25.561 Pain in right knee (principal)

== ENCOUNTER → 2021-01-30 12:05 | Outpatient (CLI) | payer OTHER ==
[2020-08-13 14:33] VITALS: BMI 32.3
[~2021-01-30 12:05] MED LIST changes: +CRESTOR40 MG; +ELIQUIS2.5 MG PO; +KEFLEX500 MG PO; +LISINOPRIL2.5 MG PO; +OXYCODONE HCL5 M1 PO; +VISTARIL50 MG PO
== END | disposition home or self-care (01) ==
LOC: D.LAB 12:05
PROVIDERS: ATTEND Internal Medicine Pulmonary Disease
DX: Z11.52 Encounter for screening for COVID-19 (principal)

== ENCOUNTER → 2021-02-28 11:48 | Outpatient (CLI) | payer OTHER ==
[2020-08-13 14:33] VITALS: BMI 32.3
== END | disposition home or self-care (01) ==
LOC: D.LAB 11:48
PROVIDERS: ATTEND Internal Medicine Pulmonary Disease
DX: Z11.52 Encounter for screening for COVID-19 (principal)